=== PATIENT | female | born 1950 | race Caucasian/White ===

== ENCOUNTER → 2020-02-09 16:54 | Outpatient (CLI) | payer MEDICARE, SELFPAY ==
--- NOTE | ~2020-02-09 | XR_ITS ---
EXAMINATION: XR wrist LT min 3V DATE: 02/09/2020 17:15 INDICATION: Lateral left wrist pain post fall 2 weeks prior. TECHNIQUE: Posteroanterior, ulnar deviation, oblique, and lateral views of the left wrist were obtain ed. COMPARISON: none FINDINGS: Nondisplaced intra-articular likely impaction fracture of the distal left radius with up to 1 mm wide lucent fracture line at the ulnar side of the scaphoid fossa. No other acute fractures identified. S evere osteoarthritis at the first carpometacarpal joint with prior resection of the trapezium consist ent with first carpal metacarpal suspension arthroplasty. There is residual prominent hypertrophic ch kermit and large loose osteochondral body in the base of the first metacarpal. Mild osteoarthritis at t he triscaphe, first metacarpophalangeal and midcarpal joints. IMPRESSION: 1. Nondisplaced intra-articular fracture of the distal left radius with negligible impaction of the r adial styloid process and majority of the scaphoid fossa. Reviewed, dictated and finalized at location H. ING THERAPY DIRECTOR IMPRESSION: 1. Nondisplaced intra-articular fracture of the distal left radius with negligi ble impaction of the radial styloid process and majority of the scaphoid fossa.
== END ==
PROVIDERS: PCP Family Medicine; Visit Provider Family Medicine
DX: S52.502A Unspecified fracture of the lower end of left radius, initial encounter for closed fracture (principal)
CPT/HCPCS: 73110

== ENCOUNTER → 2020-03-01 15:39 | Outpatient (CLI) | payer MEDICARE, SELFPAY ==
--- NOTE | ~2020-03-01 | XR_ITS ---
XR wrist LT min 3V DATE: 03/01/2020 15:49 INDICATION: Distal radial fracture TECHNIQUE: 4 views COMPARISON: 02/09/2020 left wrist FINDINGS: There is some sclerosis along the nondisplaced intra-articular fracture of the radial stylo id process, without interval change in position or alignment since 02/09/2020. Severe osteoarthritic changes noted at the first carpometacarpal joint. Moderate osteopenia. IMPRESSION: Healing virtually nondisplaced intra-articular fracture of the radial styloid process Reviewed, dictated and finalized at location A. OTREATER OPERATOR IMPRESSION: Healing virtually nondisplaced intra-articular fracture of the radi al styloid process
== END ==
PROVIDERS: PCP Family Medicine; Visit Provider Family Medicine
DX: S62.109D Fracture of unspecified carpal bone, unspecified wrist, subsequent encounter for fracture with routine healing (principal); X58.XXXD Exposure to other specified factors, subsequent encounter
CPT/HCPCS: 73110

== ENCOUNTER 2022-10-24 08:41 | Outpatient (CLI) | payer MEDICARE, SELFPAY ==
--- NOTE | 2022-11-05 18:46 | WPDHOMESLEEP ---
Sleep Study - Home Unattended Date of Study: 10/24/22 Ordering Provider: Porter Anand MD Interpreting Provider: Cecile Phillips, DO Home Sleep Study Type: Watch ELIZABETH Height: 1.63 m Weight: 77.111 kg Body Mass Index: 29.2 Neck Circumference (inches): 13.24 [place]: 10 Reason for Sleep Study Waking up with dry mouth Sleep History The patient is a 71-year-old female with hypertension, depression, anxiety, GERD, adjustment disorder, herpes simplex, osteopenia, vaginal prolapse and tubular adenoma of colon that had a sleep study ordered by her primary care physician for evaluation of sleep disturbances. 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 She denies awakening from sleep short of breath. She frequently awakens at night with heartburn, belching or cough. She constantly snores and is frequently loud enough that others complain. He rarely has trouble sleeping when she has a cold. She denies waking up gasping for air throughout the night. She denies having breathing problems at night observed by herself or others. She occasionally sweats excessively at night. She occasionally has heart palpitations or irregular heartbeats during the night. She occasionally falls asleep during the day but rarely while driving. She denies sleep paralysis, cataplexy and hypnagogic / hypnopompic hallucinations. She rarely has trouble at school or work due to sleepiness. She denies feeling afraid of going to sleep. She rarely has nightmares. She occasionally remembers her dreams. She frequently has thoughts racing through her mind. She frequently feels sad, depressed and anxious. She occasionally has muscular tension. She denies noticing parts of her body jerk. She denies kicking during the night. She denies having crawling and aching feelings in her legs but frequently has leg pain during the night. She denies grinding her teeth during sleep but rarely awakens with morning jaw pain. She is rarely bothered by pain during the day and occasionally awakened by pain during the night. She rarely wakes up feeling stiff in the morning. She rarely wakes up with sore or achy muscles. She rarely wakes up with pain in the neck, spine or other joints. She goes to bed at 11:00 p.m. on weekdays and at midnight on the weekends. It takes her 15 minutes to fall asleep. She wakes up 2-3 times throughout the night to urinate and can not fall back asleep within 5-10 minutes most of the time. She wakes up between 7-9 a.m. on both weekdays and weekends. She typically gets 6-8 hours of sleep per night. She will stay in bed for 15 minutes after waking up in the morning. She currently lives with her . She does not consume any caffeinated beverages within 2 hours of bedtime. She denies engaging in physical exercise before bedtime. She will read and watch television before falling asleep. She denies taking naps in the afternoon or the evening. She consumes 1-2 cups of decaffeinated coffee per day. She will drink alcohol socially. She denies tobacco and recreational drug use. [facility] Past Medical History Medical History Adjustment disorder with anxious mood Encounter for dual-energy x-ray absoptiometry review Hepatitis C antibody test negative (04/17/21) Herpes simplex with unspecified complication Osteopenia Tubular adenoma of colon Vaginal prolapse Surgical History Surgical History H/O dilation and curettage H/O: hysterectomy Family History Family History Mother Family history of coronary artery disease Hypertension Cerebrovascular accident Father Malignant neoplasm of prostate Family history of malignant neoplasm of bone Diabetes mellitus Sibling Malignant neoplasm of prostate Family history of malignant neoplasm of kidney Daughter Breast cancer Other Breast canc
[2022-11-05 19:01] VITALS: BMI 29.2
== END 2022-10-25 13:31 | disposition home or self-care (01) ==
PROVIDERS: PCP Family Medicine; Visit Provider Family Medicine
DX: G47.33 Obstructive sleep apnea (adult) (pediatric) (principal)
CPT/HCPCS: 95800

== ENCOUNTER 2023-01-02 08:50 | Outpatient (CLI) | payer MEDICARE, SELFPAY ==
--- NOTE | 2023-01-25 23:42 | WPDSLEEPSTUD ---
Sleep Study Date of Study: 01/02/23 Ordering Provider: Porter Anand MD Interpreting Physician: Yeny Peterson MD Sleep Study Type: CPAP Titration Height: 1.63 m Weight: 77.111 kg Body Mass Index: 29.2 Neck Circumference (inches): 13.24 [place]: 10 Reason for Sleep Study * 10/24/2022- home sleep test using WatchPat showing moderate CARRI with an AHI 23.4 and desaturation to 83%; central AHI was 2.4; she returns for a CPAP titration. Sleep History Henny Teague is a 71-year-old female with hypertension, depression, anxiety, GERD who had a home sleep test Oct 24 showing moderate obstructive sleep apnea, returning for a CPAP titration. 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 She denies awakening from sleep short of breath. She frequently awakens at night with heartburn, belching or coughing. She constantly snores and is frequently loudly enough that others complain. He rarely has trouble sleeping when she has a cold. She denies waking up gasping for air throughout the night. She denies having breathing problems at night observed by others. She occasionally sweats excessively at night. She occasionally has heart palpitations or irregular heartbeats during the night. She occasionally falls asleep during the day but rarely while driving. She denies feeling paralyzed on waking or falling asleep, denies muscle weakness with strong emotion, and denies vivid dreamlike scenes on waking or falling asleep. She rarely has daytime difficulties due to excessive sleepiness as she is retired. She is not afraid of going to sleep. She rarely has nightmares. She occasionally remembers her dreams. She frequently has thoughts racing through her mind. She frequently feels sad, depressed and anxious. She occasionally has muscular tension. She denies noticing parts of her body jerk. She denies kicking during the night. She denies having crawling and aching feelings in her legs but frequently has leg pain during the night. She denies grinding her teeth during sleep but rarely awakens with morning jaw pain. She is rarely bothered by pain during the day and occasionally awakened by pain during the night. She rarely wakes up feeling stiff in the morning. She rarely wakes up with sore or achy muscles. She rarely wakes up with pain in the neck, spine or other joints. She goes to bed at 11:00 p.m. on weekdays and at midnight on the weekends. It takes her 15 minutes to fall asleep. She wakes up 2-3 times throughout the night to urinate. She wakes up between 7-9 a.m. on both weekdays and weekends. She typically gets 6-8 hours of sleep per night. She will stay in bed for 15 minutes after waking up in the morning. She currently lives with her . She does not take naps in the afternoon or the evening. She consumes 1-2 cups of decaffeinated coffee per day. She will drink alcohol socially. She denies tobacco and recreational drug use. [facility] Past Medical History Medical History (Updated 01/25/23 @ 23:50 by Yeny Peterson MD) Adjustment disorder with anxious mood Encounter for dual-energy x-ray absoptiometry review Essential (primary) hypertension GERD without esophagitis Hepatitis C antibody test negative (04/17/21) Herpes simplex with unspecified complication CARRI (obstructive sleep apnea) Osteopenia Tubular adenoma of colon Vaginal prolapse Surgical History Surgical History H/O dilation and curettage H/O: hysterectomy Family History Family History Mother Family history of coronary artery disease Hypertension Cerebrovascular accident Father Malignant neoplasm of prostate Family history of malignant neoplasm of bone Diabetes mellitus Sibling Malignant neoplasm of prostate Family history of malignant neoplasm of kidney Daughter Breast cancer Other Breast cancer Social History Social History (Reviewed 01/25/23 @ 23:4
[2023-01-25 23:43] VITALS: BMI 29.2
== END 2023-01-03 07:23 | disposition home or self-care (01) ==
LOC: ANHCSM 08:52
PROVIDERS: PCP Family Medicine; Visit Provider Family Medicine
DX: G47.33 Obstructive sleep apnea (adult) (pediatric) (principal)
CPT/HCPCS: 95811

== ENCOUNTER → 2023-04-22 13:38 | Outpatient (CLI) | payer MEDICARE, SELFPAY ==
--- NOTE | ~2023-04-22 | XR_ITS ---
EXAMINATION: XR chest 2V Exam Date/Time: 04/22/2023 14:56 [employer] HISTORY: J18.9 - Pneumonia, unspecified organism Comparison: None. RESULT: Lines, tubes, and devices: None. Lungs and pleura: No focal consolidation, pleural effusion, or pneumothorax. Senescent change. Granu lomatous calcification. Cardiomediastinal silhouette: Stable. Other: No acute osseous or upper abdominal finding. Mild anterior wedge deformity of 2 mid thoracic vertebral bodies, likely T6 and T7. IMPRESSION: No acute cardiopulmonary process. Mild anterior wedge deformity at T6 and T7, presumably chronic unless accompanied by acute pain/tende rness. Reviewed, dictated and finalized at location K. S [employer] IMPRESSION: No acute cardiopulmonary process. Mild anterior wedge deformity at T6 and T7, presumably chronic unless accompani ed by acute pain/tenderness.
== END ==
PROVIDERS: PCP Family Medicine; Visit Provider Physician Assistant
DX: J18.9 Pneumonia, unspecified organism (principal)
CPT/HCPCS: 71046

== ENCOUNTER 2023-09-01 08:33 | Outpatient (CLI) | payer MEDICARE, SELFPAY ==
[2023-09-01 14:57] LABS: Eosinophils Absolute Auto 0.2 K/mm3 (0-0.3); Eosinophils Percent Auto 5.5 % (0-4.4); Hematocrit 40.5 % (37.0-47.0); Hemoglobin 13.1 g/dL (12.0-15.0); Immature Granulocyte Absolute 0.01 K/mm3 (0.00-0.031); Immature Granulocyte Percent A 0.2 % (0-0.5); Lymphocytes Absolute Auto 2.02 K/mm3 (0.9-3.2); Lymphocytes Percent Auto 50.4 % (18.3-44.2); Mean Corpuscular HGB Conc 32.3 g/dl (32-36); Mean Corpuscular Hemoglobin 31.3 pg (26-34); Mean Corpuscular Volume 96.9 fl (80-100); Mean Platelet Volume 9.2 fl (7.4-10.4); Monocytes Absolute Auto 0.4 K/mm3 (0.1-0.6); Monocytes Percent Auto 10.2 % (2.6-8.5); Neutrophils Absolute Auto 1.3 K/mm3 (1.3-6.7); Neutrophils Percent Auto 32.7 % (45.5-73.1); Platelet Count Result 232 k/mm3 (150-375); Red Blood Count 4.18 M/mm3 (4.2-5.4); Red Cell Distribution Width 12.6 % (11.5-14.5)
[2023-09-01 17:14] LABS: Free T4 Free Thyroxine Reflex 0.83 ng/dL (0.78-2.19)
[2023-09-01 17:27] LABS: Alanine Aminotransferase 18 U/L (6-35); Albumin Level 4.1 g/dL (3.5-5.1); Alkaline Phosphatase 66 U/L (38-126); Anion Gap 4 mmol/L (4-12); Aspartate Amino Transferase 43 U/L (14-36); Bilirubin,Total 0.5 mg/dL (0.2-1.3); Blood Urea Nitrogen 16 mg/dL (7-17); Calcium 9.2 mg/dL (8.4-10.2); Carbon Dioxide 29 mmol/L (22-30); Chloride 104 mmol/L (98-107); Cholesterol 195 mg/dL (0-200); Estimated Glomerular Filt Rate > 60; Glucose 80 mg/dL (65-110); HDL Direct 61 mg/dL; Potassium 3.9 mmol/L (3.4-5.0); Sodium 137 mmol/L (137-145); Triglycerides 90 mg/dL (<150)
[2023-09-01 17:38] LABS: LDL Cholesterol Direct 101 mg/dL
[2023-09-01 18:19] LABS: Total Triiodothyronine (T3) 1.26 NG/ML (0.97-1.69)
== END 2023-09-01 08:34 | disposition home or self-care (01) ==
LOC: ANHGOSHLAB 08:36
PROVIDERS: PCP Family Medicine; Visit Provider Family Medicine
DX: Z00.00 Encounter for general adult medical examination without abnormal findings (principal); E78.2 Mixed hyperlipidemia; E88.810 Metabolic syndrome; Z79.899 Other long term (current) drug therapy
CPT/HCPCS: 36415; 80053; 80061; 84439; 84443; 84480; 85025

== ENCOUNTER 2023-12-22 09:07 | Outpatient (CLI) | payer MEDICARE, SELFPAY ==
[2023-12-22 13:49] LABS: Alanine Aminotransferase 17 U/L (6-35); Albumin Level 3.8 g/dL (3.5-5.1); Alkaline Phosphatase 63 U/L (38-126); Anion Gap 4 mmol/L (4-12); Aspartate Amino Transferase 35 U/L (14-36); Bilirubin,Total 0.3 mg/dL (0.2-1.3); Blood Urea Nitrogen 17 mg/dL (7-17); Calcium 9.4 mg/dL (8.4-10.2); Carbon Dioxide 32 mmol/L (22-30); Chloride 103 mmol/L (98-107); Cholesterol 197 mg/dL (0-200); Estimated Glomerular Filt Rate > 60; Glucose 83 mg/dL (65-110); HDL Direct 79 mg/dL; Potassium 4.2 mmol/L (3.4-5.0); Sodium 139 mmol/L (137-145); Triglycerides 57 mg/dL (<150)
[2023-12-22 14:00] LABS: LDL Cholesterol Direct 83 mg/dL
== END 2023-12-22 09:08 | disposition home or self-care (01) ==
PROVIDERS: PCP Family Medicine; Visit Provider Family Medicine
DX: E78.5 Hyperlipidemia, unspecified (principal); R74.01 Elevation of levels of liver transaminase levels; R74.8 Abnormal levels of other serum enzymes; E88.810 Metabolic syndrome
CPT/HCPCS: 36415; 80053; 80061

== ENCOUNTER 2024-06-21 09:26 | Outpatient (CLI) | payer MEDICARE, SELFPAY ==
--- OUTSIDE RECORDS SUMMARY | 2024-06-21 10:15 | XMS_ITS | Clinical Summary ---
Author Organization 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 Gender Identity Not on file Sexual Orientation Not on file Plan of Treatment Health Maintenance Due Date Last Done Comments DEXA Bone Density 1950 Hepatitis C Virus (HCV) Screening 1950 TdaP Immunization 1950 Colonoscopy 12/27/1995 Colorectal Cancer Screening 12/27/1995 Cologuard 2000 Immunochemical Fecal Occult Blood 2000 Mammogram 2000 Pneumococcal Immunization (5 0+ years) (2 of 2 - PCV) 02/24/2019 02/24/2018 Influenza Immunization (#1) 11/23/202312/23, 12/22/2019, 12/03/2017 SARS-COV-2 Immunization ( season) 2023 12/17/2020, 05/19/2020, 04/21/2020 Respiratory Syncytial Virus (RSV) Immunization (Adult) (1 - 1-dose 75+ series) 2025 Pneumococcal Immunization Combined Discontinued 02/24/2018 Zoster Immunization Completed 04/14/2021, 01/23/2021 Hepatitis B Immunization Aged Out No longer eligible based on patient's age to complete this topic Meningococcal Immunization (ACWY) Aged Out No longer eligible based on patient's age to complete this topic Rotavirus Immunization Aged Out No lo nger eligible based on patient's age to complete this topic Insurance [employer] on file
--- OUTSIDE RECORDS SUMMARY | 2024-06-21 10:15 | XMS_ITS | Encounter Summary ---
Author Organization [facility] Address [address] [place] [address] Care Team Providers Care Organizational Research Consultant Name Role Phone Porter Anand MD Primary Care Provider [phone] Encounter Details Date Type Department Care Team (Latest Contact Info) Description 11/02/2008 Outpatient Historical [facility], [address] Sy Diaz MD [address] [address] Routine Gynecological Examination Social History Tobacco Use Types Packs/Day Years Used Date Smoking Tobacco: Never Alcohol Use Standard Drinks/Week Comments Yes 1.7 (1 standard drink = 0.6 oz p ure alcohol) Comments No Sex and Gender Information Value Date Recorded Sex Assigned at Not on file Legal Sex Female 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 Gender Identity Not on file Sexual Orientation Not on file documented as of this encounter Plan of Treatment Upcoming Encounters Date Type Department Care Team (Late st Contact Info) Description 05/11/2025 10:30 AM OLEO HASHER AND RENDERER Office Visit [facility] [id number] [address] Sy Diaz MD [address] [address] 06/08/2025 10:40 AM CDT Appointment [facility] [address] [place] [address] Sy Diaz MD [address] [email or web address] [address] [place] [address] 06/08/2025 11:00 AM CDT Appointment [facility] [place] [address] [place] [id number] Sy Diaz MD [address] [facility] [[email or web address]] [address] [place] [address] documented as of this encounter Visit Diagnoses Diagnosis Routine gynecological examination documented in this encounter Care Teams Organizational Research Consultant Relationship Specialty Start Date End Date Porter Anand MD PCP - General Family Practice 12/16/19 documented as of this encounter
--- OUTSIDE RECORDS SUMMARY | 2024-06-21 10:15 | XMS_ITS | Continuity of Care Document ---
Author Organization [facility] Address [address] [place] [address] Phone Care Team Providers Care Ec Teacher Name Role Phone Mirna Black Unavailable Unavailable Procedures Procedure Date Eye Exam Established Pt Office/outpatient Visit, New Advance Directives Directive Yes / No Effective Date File Name No Information Encounters Encounter Description Practice Location Reason(s) For Visit Diagnoses Date Provider Providers Copied on Encounter [facility], [address] [place] [address] [address], [place], [place], [id number], tel:[phone] [facility] No Information 0-200 9 Sofia Bradley. [address] , [address], [place], [place], [facility] [place], [place]. tel:[phone] Office/outpat ient Visit, [facility], [address] [place] [address] [address], [place], [place], [id number], tel:[phone] [facility] No Information 5-200 9 Anderson Justice. [address], [place], [address], [place]. tel:[phone] Family History Family Member Type Diagnosis Age At Onset No Information Payers Payer name Insurance type Covered libertarian ID Authoriza tion(s) No Information Social History Type Description Quantity Date Captured Comments Sex Female Smoking Status No Information Chief Complaint And Reason For Visit No Information Reason For Referral Reason For Referral No Information History Of Present Illness Encounter Date Complaint History Of Prese nt Illness No Information Functional Status Date Functional Assessmen t No Information Instructions Date Instruction Additional Infor mation No Information Assessments Type Assessment Date No Information Patient Care Teams Name Effective Dates (start - stop) Status Members No Information
--- OUTSIDE RECORDS SUMMARY | 2024-06-21 10:15 | XMS_ITS | Referral Summary ---
Author Organization [facility] Address [address] [place] [address] Care Team Providers Care Pc Installation Engineer Name Role Phone Porter Anand MD Primary Care Provider [phone] Encounters Date Type Department Care Team Description 04/28/2024 10:00 AM CAR SANDER Office Visit [facility] Ophthalmology [address]th [address], [address] [place] [address] Santiago Ayala, OD Age-related nuclear cataract of both eyes (Primary Dx); Posterior vitreous detachment of left eye; Corneal scar, left eye from Last 3 Months Allergies Active Allergy Reactions Criticality Noted Date Comments Neomycin-Bacitracin- Polymyxin Unknown Nsaids (Non-Steroidal Anti-Inflammatory Drug) Other (See comments) Low 04/28/2020 Does not take due to GI issues Medications simvastatin (ZOCOR) 10 mg tablet Take 1 tablet (10 mg total) by mouth nightly 9 Active lisinopril (PRINIVIL,ZESTR IL) 5 mg tablet Take 2 tablets (10 mg total) by mouth nightly at bedtime 9 Active clobetasoL (TEMOVATE) 0.05 % creamIndication s:Hand dermatitis Apply thin layer to bumps on hands BID as needed for rash. Stop if no improvement in 3-4 weeks. 30 g 1 Active Additional Information Patient not taking.Reported on 03/04/2022 acyclovir (ZOVIRAX) 5 % ointment Apply 1 application topically 6 (six) times a day Space applications every 3 hours. Active escitalopram (LEXAPRO) 10 mg tablet Take 1 tablet (10 mg total) by mouth nightly Active oxybutynin XL (DITROPAN-XL) 10 mg 24 hr tablet Take 1 tablet (10 mg total) by mouth nightly Active valACYclovir (VALTREX) 1 gram tablet Take 1 tablet (1,000 mg total) by mouth nightly Active calcium carb/vitamin D3/vit K1 (CALCIUM SOFT CHEW ORAL) Take 2 tablet/chew tab by mouth nightly Active cholecalciferol (VITAMIN D-3) 25 mcg (1,000 unit) tablet Take 1 tablet (1,000 Units total) by mouth nightly Active mv,with Qa-gpps-QG-lut- 179herb 13.5-200-250 mg-mcg-mcg tablet Take 1 tablet by mouth nightly Active polycarbophil (FIBERCON) 625 mg tablet Take 4 tablets (2,500 mg total) by mouth nightly Active HYDROcodone-griffin taminophen (NORCO) 5-325 mg per tabletIndicatio ns:Pain Take 1-2 tablets by mouth every 4 (four) hours as needed for pain for up to 30 doses 30 tablet 1 Active Additional Information Patient not taking.Reported on 03/04/2022 hydroCHLOROthia zide (HYDRODIURIL) 12.5 mg tablet Take 1 tablet (12.5 mg total) by mouth daily 2 Active omeprazole (PriLOSEC) 20 mg capsule Take 1 capsule (20 mg total) by mouth daily 2 Active estradioL (ESTRACE) 0.01 % (0.1 mg/gram) vaginal cream Insert into the vagina daily 1 Active Active Problems Problem Noted Date Diagnosed Date Posterior vitreous detachment of left eye 2024 Assessment & Plan (04/28/2024 10:39 AM CAR SANDER): No holes/breaks/tears 360 on dilated exam. Educated on s/s of a retinal detachment/tear, RTC STAT with any new onset flashes, floaters or curtain veiling. RTC 1 year for dilated exam Refractive error 04/24/2023 Visual disturbance 09/06/2021 Assessment & Plan (09/06/2021 3:59 PM CDT): Patient here today for complains of dimness in vision both eyes (OU) X 2-3 months -ocular exam overall stable and normal; reassuring but does not explain patient's symptoms -pt ed of normal findings and optimal vision; recommend start Lutein supplement to support macular pigments -RTC 6 months with Griffiths visual field (HVF) and OCT mac/GCC or sooner with more change sin vision Age-related nuclear cataract of both eyes 2021 Assessment & Plan (04/28/2024 10:39 AM CAR SANDER): Mild, not vis sig or affecting ADLs Surgery not indicated at this time Monitor Assessment & Plan (09/06/2021 4:00 PM CDT): Normal age related cataract; no significant effect on vision and would not expect this to cause patient's symptoms -cataract extraction (CE) not indicated; follow Vaginal vault prolapse after hysterectomy 2019 Overview (03/13/2020): Added automatically from request for surgery [id number] Urinary, incontinence, stress female 03/13/2020 Overview (03/13/2020): Added automatically from request for surgery [id number] Rectocele 01/12/2020 Lesion of canthus 04/29/2019 Assessment & Plan (04/29/2019 3:03 PM CAR SANDER): Nasal canthus left eye (OS) X 2 days; pt has history of herpes simplex outbreaks around mouth and nose. This most likely represents a herpes simplex lesion -no evidence of corneal involvement; anterior chamber (AC) quiet Plan: -RX Valtrex 1gram TID (will use shingles dose has pt has h/o shingles) X 1 week -start art tears TID left eye (OS) -stop contact lens (CL) wear X 10 days -pt to see PCP if does not resolve Corneal scar, left eye 04/29/2019 Assessment & Plan (04/28/2024 10:39 AM CAR SANDER): Longstanding, status post (s/p) corneal ulcer. Not affecting BCVA. Monitor. Assessment & Plan (09/06/2021 3:59 PM CDT): Stable; no effect on vision Status post laparoscopic assisted vaginal hyster ectomy 10/11/2016 Overview (03/04/2022): Complex adnexal mass; cystocele Fibroma/fibroid uterus/pcos Rash 11/20/2015 Dense breasts 04/12/2015 FH: kidney cancer 04/05/2015 Cystocele, midline 04/05/2015 Overview (03/04/2022): urology [place] of toe 10/28/2014 Inflamed seborrheic keratosis 10/28/2014 Angioma 10/28/2014 Multiple benign melanocytic nevi 10/28/2014 Pain of thigh 07/27/2014 Dermatofibroma 01/08/2013 Benign neoplastic disease 01/08/2013 Epidermoid cyst 01/08/2013 Keratosis, senilis 01/08/2013 Ulcerative colitis, unspecified 10/12/2009 Unspecified menopausal and postmenopausal disord er 11/01/2008 Fibrocystic breast 11/01/2008 Overview (03/04/2022): Abnormal mammogram and normal bx 2008 Immunizations Immunization Administration Dates Next Due Hep A, Adult 04/08/2019,12/03/2017 Influenza, Quad, Adjuvantate d, Intramuscular 01/16/2021 Influenza, Quadrivalent, Hig h Dose, Preservative Free, Intrr 12/22/2019 Influenza, Quadrivalent, Spl it, Preservative Free, Intramuscular 12/03/2017,11/21/2016,03/12/2016 [employer] SARS-CoV-2 Monovalent Vaccination (12+ Yrs) SIMENTAL-READY TO USE 06/20/2021 [employer] Sars-Cov-2 Bivalent V accination (12+ YRS) 12/12/2021 Pneumococcal Conjugate PCV 13 03/12/2016 Pneumococcal Polysaccharide PPV23 02/24/2018 ZOSTER Recombinant 04/14/2021,01/23/2021 Social History Tobacco Use Types Packs/Day Years Used Date Smoking Tobacco: Never Smokeless Tobacco: Never Alcohol Use Standard Drinks/Week Comments Yes 0 (1 standard drink = 0.6 oz pur e alcohol) occassionally Comments No Sex and Gender Information Value Date Recorded Sex Assigned at Not on file Legal Sex Female 2:19 AM CAR SANDER Gender Identity Female 04/06/2023 3:49 PM CAR SANDER Sexual Orientation Straight 04/06/2023 3: 49 PM CAR SANDER Last Filed Vital Signs Vital Sign Reading Time Taken Comments Blood Pressure 140/81 08/23/2023 9:50 AM CDT Pulse 62 08/23/2023 9:50 AM CDT Temperature 36.6 C (97.8 F) 08/23/2023 9:50 AM CDT Respiratory Rate 18 08/23/2023 9:50 AM CDT Oxygen Saturation 97% 08/23/2023 9:50 AM CDT Inhaled Oxygen Concentration - - Weight 77.5 kg (170 lb 14.4 oz) 08/23/2023 9:50 AM CDT Height 160 cm (5' 2.99 ) 08/23/2023 9:50 AM CDT Body Mass Index 30.28 08/23/2023 9:50 AM CDT Plan of Treatment Not on file Medical Devices Implanted Type Area Sheep Or Calf Grader Device Identifier Shelf Expiration Date Model / Serial / Lot LocalBonus [id number] Upsylon 35.4cm Elongation Profile Lightweight Large Pore Low - [id number] Implanted:Qty: 1 on 05/02/2020 by Andreas oCnnor MD at [facility] Mesh N/A: Pelvis [employer] No 02/20/2023 [id number] / / [id number] [employer] No [id number] Obtryx Ii Precisionblue Advantage .15mm 22cm Sling Halo Needle - [id number] Implanted:Qty: 1 on 05/02/2020 by Andreas Connor MD at [facility] N/A: Pelvis [employer] No 10/06/2022 [id number] / / [id number] Procedures Procedure Name Priority Date/Time Associated Diagnosis Comments SCREENING MAMMOGRAM BILATERAL W SHAHAB Schedule Routine, Read Routine (OP Routine) 02/27/2022 1:55 PM CAR SANDER Screening mammogram, encounter for DEXA AXIAL SKELETON BONE DENSITY 1 OR MORE SITES Routine 02/08/2013 11:30 AM CAR SANDER from Last 3 Months or Most Recently Relevant to Health Maintenance Results * Screening Mammogram Bilateral W Shahab (02/27/2022 1:55 PM CAR SANDER) Anatomical Region Laterality Modality Breast Bilateral Mammography Narrative 02/27/2022 2:27 PM CAR SANDER Screening Mammogram Bilateral W Shahab: 02/27/22 Clinical: Screening mammogram, encounter for. Prior Study Comparisons: Comparison was made to the prior available relevant studies at the time of interpretation. Findings: Bilateral No significant masses, malignant type calcifications, skin thickening, nipple retraction, or significant lymphadenopathy is noted in either breast. The CAD review showed no significant findings. The breasts are heterogeneously dense, which may obscure small masses. The patient will be notified of results by letter. Impression: BI-RADS ATLAS category (overall): 2 - Benign There is no mammographic evidence of malignancy. Routine Screening Mammogram in 1 Yr is recommended. Overall Assessment: 2 - Benign us Self Screening Mammogram IMG MAMMO PROCEDURES Fi nal Result * DEXA Axial Skeleton Bone Density Multi Site (02/08/2013 11:30 AM CAR SANDER) Anatomical Region Laterality Modality Body N/A Radiographic Aline ging 02/08/2013 11:3 0 AM CAR SANDER Narrative 02/08/2013 12:26 PM CAR SANDER Bone mineral density [facility] Clinical History: Postmenopausal female currently taking calcium and vitamin D. DXA BMD was done at [facility] Breast [facility] on a Biogenic Reagents CI. Precision testing at this site has resulted in a least significant change of: Lumbar spine 0.035 g/sq cm Hip 0.025 g/sq cm BMD L1-L4 is 1.019 g/sq cm corresponding to a T score of -0.3. BMD left femoral neck is 0.726 g/sq cm corresponding to a T score of -1.1. BMD total left hip is 0.832 g/sq cm corresponding to a T score of -0.9. COMPARISON: When comparison is made with prior bone densitometry dated 09/18/2009, there has been no significant interval change in total bone mineral density of the lumbar spine and there has been 3.4 percent interval decrease in total bone mineral density of the left hip. IMPRESSION: Low bone mass (osteopenia) which depending on the clinical circumstances may result in a moderate increased risk of fragility fracture. If followup is to be done, for technical reasons, it should be performed on this same machine. Radiologist: GODFREY RODRIGUEZ M.D. Attending: LUCY DE DIOS M.D. Requesting: LUCY DE DIOS M.D. Requesting Completed Time: 02/08/2013 11:30 AM Dictated Time: 02/08/2013 12:21 AM Transcribed Time: 02/08/2013 12:26 AM Signed by: GODFREY RODRIGUEZ M.D. on 02/08/2013 12:26 AM Procedure Note Provider, MD Kevin - 07/17/2016 Bone mineral density [facility] Clinical History: Postmenopausal female currently taking calcium and vitamin D. DXA BMD was done at [facility] on a HoloAttention Point Discovery CI. Precision testing at this site has resulted in a least significant change of: Lumbar spine 0.035 g/sq cm Hip 0.025 g/sq cm BMD L1-L4 is 1.019 g/sq cm corresponding to a T score of -0.3. BMD left femoral neck is 0.726 g/sq cm corresponding to a T score of -1.1. BMD total left hip is 0.832 g/sq cm corresponding to a T score of -0.9. COMPARISON: When comparison is made with prior bone densitometry dated 09/18/2009, there has been no significant interval change in total bone mineral density of the lumbar spine and there has been 3.4 percent interval decrease in total bone mineral density of the left hip. IMPRESSION: Low bone mass (osteopenia) which depending on the clinical circumstances may result in a moderate increased risk of fragility fracture. If followup is to be done, for technical reasons, it should be performed on this same machine. Radiologist: GODFREY RODRIGUEZ M.D. Attending: LUCY DE DIOS M.D. Requesting: LUCY DE DIOS M.D. Requesting Completed Time: 02/08/2013 11:30 AM Dictated Time: 02/08/2013 12:21 AM Transcribed Time: 02/08/2013 12:26 AM Signed by: GODFREY RODRIGUEZ M.D. on 02/08/2013 12:26 AM [facility] Provider MD ROBLES DXA PROCEDURES Final Result from Last 3 Months or Most Recently Relevant to Health Maintenance Insurance MEDICARE MEDICARE ADVANTAGE [facility] MEDIC[facility] Address: [address] [address] [place] [address] [employer] MEDICARE Care Teams Pc Installation Engineer Relationship Specialty Start Date End Date Porter Anand MD PCP - General 12/06/19
--- OUTSIDE RECORDS SUMMARY | 2024-06-21 10:15 | XMS_ITS | Clinical Summary ---
Author Organization [facility] Address [address] [place] [address] Care Team Providers Care Weighmaster Lead Name Role Phone Porter Anand MD Primary Care Provider [phone] Allergies Active Allergy Reactions Criticality Noted Date [...] Units total) by mouth nightly Active mv,with Qt-svzm-PU-lut- 179herb 13.5-200-250 mg-mcg-mcg tablet Take 1 tablet [...] 2024 Assessment & Plan (04/28/2024 10:39 AM CHEMISTRY QUALITY CONTROL ANALYST): No holes/breaks/tears 360 on dilated exam. Educated [...] 2021 Assessment & Plan (04/28/2024 10:39 AM CHEMISTRY QUALITY CONTROL ANALYST): Mild, not vis sig or affecting ADLs Surgery not indicated at this time Monitor Assessment & Plan (09/06/2021 4:00 PM CDT): Normal age related cataract; no significant effect on vision and would not expect this to cause patient's symptoms -cataract extraction (CE) not indicated; follow Vaginal vault prolapse after hysterectomy 2019 Overview (03/13/2020): Added automatically from request for surgery [id number] Urinary, incontinence, stress female 03/13/2020 Overview (03/13/2020): Added automatically from request for surgery [id number] Rectocele 01/12/2020 Lesion of canthus 04/29/2019 Assessment & Plan (04/29/2019 3:03 PM CHEMISTRY QUALITY CONTROL ANALYST): Nasal canthus left eye (OS) X 2 [...] 04/29/2019 Assessment & Plan (04/28/2024 10:39 AM CHEMISTRY QUALITY CONTROL ANALYST): Longstanding, status post (s/p) corneal ulcer. Not affecting BCVA. Monitor. Assessment & Plan (09/06/2021 3:59 PM CDT): Stable; no effect on vision Status post laparoscopic assisted vaginal hyster ectomy 10/11/2016 Overview (03/04/2022): Complex adnexal mass; cystocele Fibroma/fibroid uterus/pcos Rash 11/20/2015 Dense breasts 04/12/2015 FH: kidney cancer 04/05/2015 Cystocele, midline 04/05/2015 Overview (03/04/2022): urology [place] of toe 10/28/2014 Inflamed seborrheic keratosis 10/28/2014 Angioma 10/28/2014 Multiple benign melanocytic nevi 10/28/2014 Pain of thigh 07/27/2014 Dermatofibroma 01/08/2013 Benign neoplastic disease 01/08/2013 Epidermoid cyst 01/08/2013 Keratosis, senilis 01/08/2013 Ulcerative colitis, unspecified 10/12/2009 Unspecified menopausal and postmenopausal disord er 11/01/2008 Fibrocystic breast 11/01/2008 Overview (03/04/2022): Abnormal mammogram and normal bx 2007 Encounters Date Type Department Care Team Description 04/28/2024 10:00 AM CHEMISTRY QUALITY CONTROL ANALYST Office Visit [facility] Ophthalmology [address], [address] [place] [address] Santiago Ayala, OD Age-related nuclear cataract of both eyes (Primary Dx); Posterior vitreous detachment of left eye; Corneal scar, left eye from Last 3 Months Immunizations Immunization Administration Dates Next Due Hep A, Adult 04/08/2019,12/03/2017 Influenza, Quad, Adjuvantate d, Intramuscular 01/16/2021 Influenza, Quadrivalent, Hig h Dose, Preservative Free, Intrr 12/22/2019 Influenza, Quadrivalent, Spl it, Preservative Free, Intramuscular 12/03/2017,11/21/2016,03/12/2016 [employer] SARS-CoV-2 Monovalent Vaccination (12+ Yrs) SIMENTAL-READY TO USE 06/20/2021 [employer] Sars-Cov-2 Bivalent V accination (12+ YRS) 12/12/2021 Pneumococcal Conjugate PCV 13 03/12/2016 Pneumococcal Polysaccharide PPV23 02/24/2018 ZOSTER Recombinant 04/14/2021,01/23/2021 Surgical History Surgery Date Site/Laterality Comments HYSTERECTOMY age 65 DILATION AND CURETTAGE OF UTERUS 03/24/1984 - 03/23/1985 Medical History Medical History Date Comments Vaginal vault prolapse after hysterectomy Female stress incontinence Anxiety and depression HTN (hypertension) HLD (hyperlipidemia) Asthma as child GERD (gastroesophageal reflux disease) OAB (overactive bladder) Family History Medical History Relation Name Comments Cancer Father Family history of malignant neoplasm - (Added by TW Conv) Diabetes Father Family history of diabetes mellitus - (Added by TW Conv) Hypertension Mother Family history of hypertension - (Added by TW Conv) Stroke Mother Family history of cerebrovascular accident - (Added by TW Conv) Cancer Other 1 Family history of malignant neoplasm - (Added by TW Conv) Diabetes Other 2 Family history of diabetes mellitus - (Added by TW Conv) Hypertension Other 3 Family history of hypertension - (Added by TW Conv) Relation Name Status Comments Father Mother Other 1 Other 2 Other 3 Social History Tobacco Use Types Packs/Day Years Used Date Smoking Tobacco: Never Smokeless Tobacco: Never Alcohol Use Standard Drinks/Week Comments Yes 0 (1 standard drink = 0.6 oz pur e alcohol) occassionally Comments No Sex and Gender Information Value Date Recorded Sex Assigned at Not on file Legal Sex Female 2:19 AM CHEMISTRY QUALITY CONTROL ANALYST Gender Identity Female 04/06/2023 3:49 PM CHEMISTRY QUALITY CONTROL ANALYST Sexual Orientation Straight 04/06/2023 3: 49 PM CHEMISTRY QUALITY CONTROL ANALYST Obstetrics History Last Filed Vital Signs Vital Sign Reading [...] 08/23/2023 9:50 AM CDT Plan of Treatment Health Maintenance Due Date Last Done Comments Colon Cancer Screening-Colonoscopy 1950 Depression Screening 1950 Hepatitis C Screening 1950 DTaP/Tdap/Td Vaccine (1 - Tdap) 1961 Hepatitis B Screening 1968 Well Visit 65+ 12/27/2015 Fall Risk Assessment 05/02/2021 05/02/2020 Covid-19 Vaccine (6 - 2023-2 5 season) 2023 12/12/2021, 06/20/2021, 12/17/2020, Additional history exists Influenza Vaccine (#1) 2023 , 12/22/2019, 12/03/2017, Additional history exists Breast Cancer Screening-Mammogram 04/24/2024 04/24/2023, 04/24/2023, 02/27/2022, Additional history exists Osteoporosis Screening-Bone Density Scan 04/24/2025 04/24/2023, 04/24/2023, 01/11/2021, Additional history exists Pneumococcal vaccine 65+ Completed 02/24/2018, 02/22 Zoster Vaccine Completed 04/14/2021, 01/23/2021 Medical Devices Implanted Type Area Actuarial Mathematician Device Identifier Shelf Expiration Date Model / Serial / Lot Wesabe [id number] Upsylon 35.4cm Elongation Profile Lightweight Large Pore Low - [id number] Implanted:Qty: 1 on 05/02/2020 by Andreas Connor MD at [facility] Mesh N/A: Pelvis [employer] No 02/20/2023 [id number] / / [id number] [employer] No [id number] Obtryx Ii Precisionblue Advantage .15mm 22cm Sling Halo Needle - [id number] Implanted:Qty: 1 on 05/02/2020 by Andreas Connor MD at [facility] N/A: Pelvis [employer] No 10/06/2022 [id number] / / [id number] Procedures Procedure Name Priority Date/Time Associated Diagnosis Comments SCREENING MAMMOGRAM BILATERAL W SHAHAB Schedule Routine, Read Routine (OP Routine) 02/27/2022 1:55 PM CHEMISTRY QUALITY CONTROL ANALYST Screening mammogram, encounter for DEXA AXIAL SKELETON BONE DENSITY 1 OR MORE SITES Routine 02/08/2013 11:30 AM CHEMISTRY QUALITY CONTROL ANALYST from Last 3 Months or Most Recently Relevant to Health Maintenance Results * Screening Mammogram Bilateral W Shahab (02/27/2022 1:55 PM CHEMISTRY QUALITY CONTROL ANALYST) Anatomical Region Laterality Modality Breast Bilateral Mammography Narrative 02/27/2022 2:27 PM CHEMISTRY QUALITY CONTROL ANALYST Screening Mammogram Bilateral W Shahab: 02/27/22 Clinical: [...] Bone Density Multi Site (02/08/2013 11:30 AM CHEMISTRY QUALITY CONTROL ANALYST) Anatomical Region Laterality Modality Body N/A Radiographic Aline ging 02/08/2013 11:3 0 AM CHEMISTRY QUALITY CONTROL ANALYST Narrative 02/08/2013 12:26 PM CHEMISTRY QUALITY CONTROL ANALYST Bone mineral density [facility] Clinical History: Postmenopausal female currently taking calcium and vitamin D. DXA BMD was done at [facility] on a IP Ghoster CI. Precision testing at this site has [...] performed on this same machine. Radiologist: GODFREY RODIRGUEZ M.D. Attending: LUCY DE DIOS M.D. Requesting: LUCY DE DIOS M.D. Requesting Completed Time: 02/08/2013 11:30 AM Dictated Time: 02/08/2013 12:21 AM Transcribed Time: 02/08/2013 12:26 AM Signed by: GODFREY RODRIGUEZ M.D. on 02/08/2013 12:26 AM Procedure Note Provider, MD Kevin - 07/17/2016 Bone mineral density [facility] Clinical History: Postmenopausal female currently taking calcium and vitamin D. DXA BMD was done at [facility] on a Holo[employer] Discovery CI. Precision testing at this site [...] GODFREY RODRIGUEZ M.D. on 02/08/2013 12:26 AM Historical Provider MD ROBLES DXA PROCEDURES Final Result from Last 3 Months or Most Recently Relevant to Health Maintenance Insurance [facility] MEDICARE [facility] MEDICARE Address: [facility] [address] [place] [address] UHC MEDICARE ADVANTAGE [employer] MEDICARE [facility] MEDICARE Address: [facility] [id number] [place] [phone] Care Teams Weighmaster Lead Relationship Specialty Start Date End Date Porter Anand MD PCP - General 12/06/19
--- OUTSIDE RECORDS SUMMARY | 2024-06-21 10:15 | XMS_ITS | Clinical Summary ---
Author Organization [facility] Address [address] [place] [address] Phone Care Team Providers Care Detective Private Eye Name Role Phone Porter Anand MD Primary Care Provider [phone] Allergies Active Allergy Reactions Criticality Noted Date Comments Neomycin Other (See Comments) 11/01/2008 Wound would not heal Medications simvastatin (ZOCOR) 10 mg Oral Tab Take 10 mg by mouth Daily LATE. Active PSYLLIUM HUSK (METAMUCIL ORAL) Take by mouth. Activ e cholecalciferol , Vitamin D3, (VITAMIN D3) 1,000 unit Capsule Take by mouth daily. Active acyclovir (ZOVIRAX) 5 % Ointment 6 Active valACYclovir (VALTREX) 1 gram tablet 6 Active calcium as carbonate (CALCI-CHEW) 1,250 mg (500 mg elemental) Tablet, Chewable Take 2 Tablets by mouth daily. Active escitalopram oxalate (LEXAPRO) 10 mg tablet TK 1 T PO D 0 Active lisinopriL (PRINIVIL) 2.5 mg tablet Take 10 mg by mouth daily. 0 Active mv,with Fo-plxg-WS-lut- 179herb 13.5-200-250 mg-mcg-mcg Tablet Take 1 Tablet by mouth daily at bedtime. Active oxybutynin chloride (DITROPAN XL) 10 mg Extended Release 24 hour tablet Take 10 mg by mouth daily at bedtime. Active nystatin-triamc inolone (MYCOLOG-II) 100,000-0.1 unit/g-% Cream Apply to affected area 2 times daily. 30 Gram 1 1 Active Additional Information Patient not taking.Reported on 04/12/2024 hydroCHLOROthia zide (HYDRODIURIL) 12.5 mg tablet Take 12.5 mg by mouth daily. 2 Active omeprazole (PriLOSEC) 20 mg Capsule, Delayed Release(E.C.) Take 20 mg by mouth daily. 2 Active estradioL (Estrace) 0.01% (0.1 mg/g) vaginal cream Insert vaginally daily. 42.5 Gram 2 3 Active Additional Information Patient not taking.Reported on 04/12/2024 Flowflex COVID-19 Ag Home Test Kit USE DIRECTED 3 Active albuterol sulfate HFA 90 mcg/actuation aerosol inhaler INHALE 2 PUFFS EVERY 4 HOURS NEEDED FOR WHEEZE OR FOR SHORTNESS OF BREATH 4 Active amoxicillin-cla vulanate (AUGMENTIN) 875-125 mg tablet Take 1 Tablet by mouth 2 times daily. 3 Active benzonatate (TESSALON) 200 mg capsule 200 MG ORALLY THREE TIMES A DAY NEEDED FOR COUGH 3 Active budesonide-form oteroL (SYMBICORT) 160-4.5 mcg/actuation HFA Aerosol Inhaler INHALE 2 PUFFS EVERY 12 HOURS 3 Active polycarbophil calcium (FIBERCON) 625 mg tablet Take 2,500 mg by mouth daily at bedtime. Active mirabegron (MYRBETRIQ) 25 mg Extended Release 24 hour tablet Take 1 Tablet by mouth daily. 4 Active Active Problems Problem Noted Date Diagnosed Date Abnormal mammogram of left breast 05/27/2024 FH: BRCA gene positive 03/06/2022 Age-related nuclear cataract of both eyes 2021 Overview (03/06/2022): Last Assessment & Plan: Normal age related cataract; no significant effect on vision and would not expect this to cause patient's symptoms -cataract extraction (CE) not indicated; follow Visual disturbance 09/06/2021 Overview (03/06/2022): Last Assessment & Plan: Patient here today for complains of dimness in vision both eyes (OU) X 2-3 months -ocular exam overall stable and normal; reassuring but does not explain patient's symptoms -pt ed of normal findings and optimal vision; recommend start Lutein supplement to support macular pigments -RTC 6 months with Griffiths visual field (HVF) and OCT mac/GCC or sooner with more change sin vision Vaginal vault prolapse after hysterectomy 2019 Overview (12/25/2020): Added automatically from request for surgery [id number] Rectocele 01/12/2020 Corneal scar, left eye 04/29/2019 Lesion of canthus 04/29/2019 Overview (01/12/2020): Last Assessment & Plan: Nasal canthus left eye (OS) X 2 [...] to see PCP if does not resolve 2017: DaTLH/BSO 10/11/2016 Overview (10/24/2016): Complex adnexal mass; cystocele Fibroma/fibroid uterus/pcos Rash 11/20/2015 Dense breasts 04/12/2015 FH: kidney cancer: Brother 04/05/2015 FIORELLA (stress urinary incontinence, female) 2015 Cystocele, midline 04/05/2015 Overview (06/02/2015): urology [place] of toe 10/28/2014 Hemangioma 10/28/2014 Inflamed seborrheic keratosis 10/28/2014 Multiple benign melanocytic nevi 10/28/2014 Pain of thigh 07/27/2014 Benign neoplastic disease 01/08/2013 Dermatofibroma 01/08/2013 Epidermoid cyst 01/08/2013 LMP 2006 11/01/2008 Fibrocystic Breast / Dense Breasts 11/01/2008 Overview (11/01/2008): Abnormal mammogram and normal bx 2007 Resolved Problems Problem Noted Date Diagnosed Date Resolved Date Endometrial polyp 06/02/2015 10/24/2016 Ovarian cyst, right 05/19/2015 10/25/19 left solid ovarian growth 05/19/2015 Postmenopausal bleeding 05/19/201505/2016 Intramural leiomyoma of uterus 05/19/2015 10/24/2016 FH: Ulcerative Colitis- mother 10/12/2009 04/13/2023 Encounters Date Type Department Care Team Description 06/16/2024 7:51 AM CDT - 06/16/2024 11:59 PM CDT Hospital Encounter [facility] [address] [facility] [place] [place] [address] Sy Diaz MD Discharge Disposition: Home or Self Care 06/16/2024 7:40 AM CDT - 06/16/2024 11:59 PM CDT Hospital Encounter [facility] [address] [place] [address] Sy Diaz MD Discharge Disposition: Home or Self Care 06/16/2024 Results Follow-Up [facility] [id number] [address] Sy Diaz MD MAMMO 3D TEZ DIAGNOSTIC UNI LT W OR WO CAD 06/09/2024 External Device Data STL ABSTRACTION Provider, Abstract 05/29/2024 External Device Data STL ABSTRACTION Provider, Abstract 05/28/2024 External Device Data STL ABSTRACTION Provider, Abstract 05/27/2024 Results Follow-Up [facility] [id number] [address] Sy Diaz MD MAMMO 3D TEZ SCREEN BILAT W OR WO CAD 05/26/2024 1:09 PM [employer] - 05/26/2024 11:59 PM [employer] Hospital Encounter [facility] [facility] [address] [place] [address] Sy Diaz MD Discharge Disposition: Home or Self Care 05/25/2024 External Device Data STL ABSTRACTION Provider, Abstract 05/11/2024 External Device Data STL ABSTRACTION Provider, Abstract 04/15/2024 External Device Data STL ABSTRACTION Provider, Abstract 04/14/2024 External Device Data STL ABSTRACTION Provider, Abstract 04/13/2024 External Device Data STL ABSTRACTION Provider, Abstract 04/12/2024 10:30 AM [employer] Office Visit [facility] [place] [id number] [place] [address] Sy Diaz MD Well woman exam with routine gynecological exam (Primary Dx); Visit for screening mammogram; Chronic obstructive pulmonary disease, unspecified COPD type (CMS/HCC); Menopause 04/06/2024 External Device Data STL ABSTRACTION Provider, Abstract from Last 3 Months Immunizations Immunization Administration Dates Next Due (HAVRIX/VAQTA)(19 YRS UP) HE PATITIS A VACCINE ADULT DOSAGE 1 ML IMM 04/08/2019,12/03/2017 (PNEUMOVAX 23)(50 YRS UP) PN EUMOCOCCAL POLYSACCHARIDE (PPV23) 0.5 ML, IM 02/24/2018 (PREVNAR 13)(6 WKS UP) PNEUM OCOCCAL CONJUGATE (PCV13) 0.5 ML, IM 03/12/2016 (SHINGRIX)(50 YRS UP) ZOSTER VACCINE RECOMBINANT, 0.5 ML, IM 04/14/2021,01/23/2021 INFLUENZA VACCINE HIGH DOSE QUADRIVALENT 65 YR UP PF IM 12/22/2019 INFLUENZA VACCINE QUADRIVALE NT 6 MOS UP PF IM 12/03/2017,11/21/2016,03/12/2016 INFLUENZA VACCINE QUADRIVALE NT ADJ 65 YR UP PF IM 01/16/2021 Family History Medical History Relation Name Comments Kidney Cancer Brother 1 Jon Prostate Cancer Brother 1 Jon Arrhythmia Brother 2 William High Cholesterol Brother 2 William Breast Cancer Daughter 1 Raiza Other Daughter 1 Raiza fibroid uterus, (outside of uterus) Healthy Daughter 2 Kelsey Diabetes Father age onset Prostate Cancer Father metastatic Learning Disabilities Grandson Stroke Maternal Aunt Stroke Maternal Grandfather Hypertension Mother Other Mother ulcerative coli tis, ileostomy, Stroke Mother Ulcerative Colitis Mother ileostomy Learning Disabilities Nephew x2 Breast Cancer Niece Invasive ducta l carcinoma Learning Disabilities Niece Hypertension Other H-Porter Other Paternal Aunt diverticulitis Heart Attack Paternal Grandfather Healthy Sister Teena Healthy Son Mark Psoriasis Son Mark Colon Cancer Neg Hx Relation Name Status Comments Brother 1 Jon Alive Brother 2 William Alive Daughter 1 Raiza Alive Daughter 2 Kelsey Alive Father (Age 66) Grandchild Alive Grandson Alive Maternal Aunt Maternal Cousin x9 Alive Maternal Grandfather (Age 60s) Maternal Grandmother (Age 80s) Maternal Uncle 1 Maternal Uncle 2 Mother (Age 79) Nephew x2 Alive Niece Alive Niece/Nephew x4 Alive Other H-Porter Alive Paternal Aunt (Age 70s) Paternal Cousin 1 (Age 70s) Paternal Cousin 2 x3 Alive Paternal Grandfather Paternal Grandmother (Age 80s) Paternal Uncle Alive Sister Teena Alive Son Mark Alive Social History Tobacco Use Types Packs/Day Years Used Date Smoking Tobacco: Never Smokeless Tobacco: Never Tobacco Cessation:Counseling Given: Not Answered Alcohol Use Standard Drinks/Week Comments Not Currently 0 (1 standard drink = 0.6 oz pur e alcohol) socially Comments No Sex and Gender Information Value Date Recorded Sex Assigned at Not on file Legal Sex Female 4:59 AM [employer] Gender Identity Not on file Sexual Orientation Not on file Last Filed Vital Signs Vital Sign Reading Time Taken Comments Blood Pressure 124/78 04/12/2024 10:36 AM [employer] Pulse 60 01/20/2020 12:19 PM CDT Temperature 36.1 C (96.9 F) 01/20/2020 12:08 PM CDT Respiratory Rate 18 01/20/2020 12:19 PM CDT Oxygen Saturation 100% 01/20/2020 12:19 PM CDT Inhaled Oxygen Concentration - - Weight 80.3 kg (177 lb) 04/12/2024 10:36 AM [employer] Height 165.1 cm (5' 5 ) 04/12/2024 10:36 AM [employer] Body Mass Index 29.45 04/12/2024 10:36 AM [employer] Plan of Treatment Upcoming Encounters Date Type Department Care Team (Late st Contact Info) Description 05/11/2025 10:30 AM HANDIC[employer] Office Visit [facility] [place] [id number] [place] [phone] Sy Diaz MD [id number] [place] [address] 06/08/2025 10:40 AM CDT Appointment [facility] [address] [place] [address] Sy Diaz MD [address] [address] 06/08/2025 11:[address] [facility] [place] [facility] [address] [place] [address] Sy Diaz MD [address] [address] Health Maintenance Due Date Last Done Comments DTAP/TDAP/TD VACCINES (1 - Tdap) 1969 FIT-DNA Q 3 years 12/27/1995 FIT/FOBT Q 1 year 12/27/1995 Flex Sig/CT Colonography Q 5 years 12/27/1995 INFLUENZA VACCINE (#1) 2023 , 12/22/2019, 12/03/2017, Additional history exists COVID-19 Vaccine (3 2023-2 5 season) 2023 12/12/2021, 06/20/2021 COLORECTAL SCREENING 01/19/2025 01/20/2020, 01/20/2020, 01/20/2020, Additional history exists Colorectal Cancer Screening 01/19/2025 BREAST CANCER SCREENING 06/16/2025 06/17/19 25, 05/26/2024, 04/24/2023, Additional history exists RSV VACCINE (60+ or ) (1 - 1-dose 75+ series) 2025 OSTEOPOROSIS SCREENING 04/24/2028 , 01/11/2021, 07/16/2017, Additional history exists PNEUMOCOCCAL VACCINE 50+ YEARS Completed 02/24/2018 , 03/12/2016 ZOSTER VACCINE Completed 04/14/2021, 01/23/2021 Medicare [place] ([place]) Preventative Visit/Annual Wellness Visit Completed 04/12/2024, 04/09/2023, 03/06/2022, Additional history exists Procedures Procedure Name Priority Date/Time Associated Diagnosis Comments MAMMO DIAG UNI LEFT 3D TEZ W OR WO CAD Routine 06/16/2024 8:06 AM CDT Abnormal mammogram of left breast MAMMO BREAST US LEFT LTD Routine 06/16/2024 8:06 AM CDT Abnormal mammogram of left breast MAMMO 3D TEZ SCREEN BILAT W OR WO CAD Routine 05/26/2024 1:39 PM [employer] Visit for screening mammogram XR DEXA BONE DENSITY AXIAL 1 OR MORE SITES Routine 04/24/2023 1:18 PM [employer] Screening for osteoporosis Menopause COLONOSCOPY REPORT 01/20/2020 12 :08 PM CDT from Last 3 Months or Most Recently Relevant to Health Maintenance Results * MAMMO 3D TEZ DIAGNOSTIC UNI LT W OR WO CAD (06/16/2024 8:06 AM CDT) Anatomical Region Laterality Modality Breast Left Mammography 06/16/2024 8:06 AM CDT Impressions 06/16/2024 8:25 AM CDT IMPRESSION: No suspicious findings to suggest malignancy. Left breast cyst noted. Annual mammography recommended. OVERALL FINAL ASSESSMENT: BI-RADS CATEGORY 2: Benign findings DICTATION LOCATION: [facility] Narrative 06/16/2024 8:25 AM CDT LEFT BREAST FULL-FIELD DIGITAL DIAGNOSTIC MAMMOGRAM WITH CAD WITH 3D TOMOSYNTHESIS AND LIMITED LEFT BREAST ULTRASOUND DATE: 06/16/2024 8:06 AM HISTORY: Abnormal screening mammogram COMPARISON: 05/26/2024 and older BREAST COMPOSITION: The breasts are heterogeneously dense, which may obscure small masses. TECHNIQUE: Diagnostic full field and spot compression digital mammography was performed on the left breast. Low-dose digital breast tomosynthesis examination was performed with 2D and 3D acquisitions. Examination is read in conjunction with computer aided detection. Targeted sonography of the left breast was performed. FINDINGS: MAMMOGRAMS: There is an obscured mass in the posterior outer central breast. ML projection this measures approximately 1.8 cm and is located 7.5 cm deep to the nipple. No concerning microcalcifications or architectural distortion is identified. ULTRASOUND: Targeted sonography the outer central left breast was performed. A 2-3:00, 5 cm from the nipple, posterior depth, there is a cyst which measures 1.5 x 0.4 x 1.4 cm. This demonstrates no internal vascularity. Posterior acoustic enhancement is seen. This is felt correlate the mammographic mass. No concerning mass is noted. us Sy Diaz MD MAMMO ORDERABLES Final Resul t * MAMMO BREAST US LEFT LTD (06/16/2024 8:06 AM CDT) Anatomical Region Laterality Modality Left Ultrasound 06/16/2024 8:06 AM CDT Impressions 06/16/2024 8:25 AM CDT IMPRESSION: No suspicious findings to suggest malignancy. Left breast cyst noted. Annual mammography recommended. OVERALL FINAL ASSESSMENT: BI-RADS CATEGORY 2: Benign findings DICTATION LOCATION: [facility] 06/16/2024 8:25 AM CDT LEFT BREAST FULL-FIELD DIGITAL DIAGNOSTIC MAMMOGRAM WITH CAD WITH 3D TOMOSYNTHESIS AND LIMITED LEFT BREAST ULTRASOUND DATE: 06/16/2024 8:06 AM HISTORY: Abnormal screening mammogram COMPARISON: 05/26/2024 and older BREAST COMPOSITION: The breasts are heterogeneously dense, which may obscure small masses. TECHNIQUE: Diagnostic full field and spot compression digital mammography was performed on the left breast. Low-dose digital breast tomosynthesis examination was performed with 2D and 3D acquisitions. Examination is read in conjunction with computer aided detection. Targeted sonography of the left breast was performed. FINDINGS: MAMMOGRAMS: There is an obscured mass in the posterior outer central breast. ML projection this measures approximately 1.8 cm and is located 7.5 cm deep to the nipple. No concerning microcalcifications or architectural distortion is identified. ULTRASOUND: Targeted sonography the outer central left breast was performed. A 2-3:00, 5 cm from the nipple, posterior depth, there is a cyst which measures 1.5 x 0.4 x 1.4 cm. This demonstrates no internal vascularity. Posterior acoustic enhancement is seen. This is felt correlate the mammographic mass. No concerning mass is noted. us Sy Diaz MD MAMMO ORDERABLES Final Resul t * MAMMO 3D TEZ SCREEN BILAT W OR WO CAD (05/26/2024 1:39 PM HANDICAP[employer]ARNESS [employer]ACING) Anatomical Region Laterality Modality Breast Bilateral Mammography 05/26/2024 1:39 PM [employer] Impressions 05/26/2024 1:50 PM [employer] IMPRESSION: Area of increased density in the upper outer left breast. Left diagnostic mammography and possible left breast ultrasound recommended. OVERALL FINAL ASSESSMENT: BI-RADS CATEGORY 0 - incomplete, needs additional imaging evaluation DICTATION LOCATION: [facility] 05/26/2024 1:50 PM HAND[employer]PER [employer]ARNESS [employer]ACING BILATERAL SCREENING DIGITAL MAMMOGRAM WITH 3D TOMOSYNTHESIS AND CAD DATE: 05/26/2024 1:39 PM HISTORY: Routine screening. TECHNIQUE: Full-field digital craniocaudal and mediolateral oblique projections of both breasts were obtained. Low-dose full-field digital breast tomosynthesis examination was performed with 2D and 3D acquisitions. Examination is read in conjunction with computer aided detection. COMPARISON: Prior available breast imaging exams. BREAST COMPOSITION: The breasts are heterogeneously dense, which may obscure small masses FINDINGS: There is an area of increased density in the upper outer left breast, posterior depth. Additional imaging of the left breast is recommended. No concerning finding within the right breast. us Sy Diaz MD MAMMO ORDERABLES Final Resul t * XR DEXA BONE DENSITY AXIAL 1 OR MORE SITES (04/24/2023 1:18 PM HANDICAP[employer]ARNESS [employer]AC[employer]) Anatomical Region Laterality Modality Digital Radiogra phy 04/24/2023 1:18 PM [employer] Impressions 04/24/2023 4:08 PM [employer] IMPRESSION: This is a summary page. Please refer to the complete detailed report found in the Imaging Section of the [facility] EMR, including absolute bone mineral density values. Decreased (osteopenic) BMD. Comments: Bone mineral density measured in the spine may be unreliable due to the impact of sclerotic degenerative changes. Statistical change: No significant decrease in BMD since the prior exam. A statistically significant change is defined as a change of greater than 2.5 standard deviations in the least significant difference (LSD) from the prior study. Least significant differences and statistically significant changes are defined as follows: Lumbar spine: +/- 0.010 g/cm2 LSD (+/- 0.025 g/cm2 statistically significant change) Femoral neck: +/- 0.014 g/cm2 (+/- 0.035 g/cm2) Forearm radius 33%: +/- 0.020 g/cm2 (+/- 0.050 g/cm2) FRAX FRACTURE RISK ASSESSMENT: Risk factors: Personal history of fracture. 10 Year Probability Of Fracture Major Osteoporotic: 16.3 % Hip: 2.7 % Comparison population: [place], Race: A major osteoporotic fracture is defined as a fracture of the spine, forearm, hip or shoulder. Definitions: Normal: T-score >= -1.0 Osteopenia T-score less than -1.0 and above -2.5 Osteoporosis: T-score <= -2.5 Follow-up Recommendations: Patients without high risk factors for osteoporosis T-score -1.0 to -1.5 - Consider repeat BMD in 5-10 years T-score -1.5 to - 2.0 - Consider repeat BMD in 3-5 years T-score -2.0 to - 2.5 - Consider repeat BMD every 2 years Patients on treatment for osteoporosis 1-2 years after initiation of treatment and every 2 years thereafter DICTATION LOCATION: Location 1 - [facility] Narrative 04/24/2023 4:08 PM [employer] EXAMINATION: BONE DENSITY STUDY (DXA) DATE: 04/24/2023 1:18 PM HISTORY: See Diagnosis Screening for osteoporosis; Menopause PROCEDURE: Planar images of the lumbar spine, hip(s) and/or forearm(s) using a [employer] DEXA scanner for bone mineral density determination (BMD). Prior bone density: 01/11/2021 FINDINGS: Lumbar Spine (L1-L4): T-Score: 0.3 Left 33% Radius: T-Score: -1.6 Left Femoral Neck: T-Score: -1.6 Right Femoral Neck: T-Score: -1.4 Procedure Note John Ahn MD - 04/24/2023 EXAMINATION: BONE DENSITY STUDY (DXA) DATE: 04/24/2023 1:18 PM HISTORY: See Diagnosis Screening for osteoporosis; Menopause PROCEDURE: Planar images of the lumbar spine, hip(s) and/or forearm(s) using a [employer] DEXA scanner for bone mineral density determination (BMD). Prior bone density: 01/11/2021 FINDINGS: Lumbar Spine (L1-L4): T-Score: 0.3 Left 33% Radius: T-Score: -1.6 Left Femoral Neck: T-Score: -1.6 Right Femoral Neck: T-Score: -1.4 IMPRESSION: This is a summary page. Please refer to the complete detailed report found in the Imaging Section of the [facility] EMR, including absolute bone mineral density values. Decreased (osteopenic) BMD. Comments: Bone mineral density measured in the spine may be unreliable due to the impact of sclerotic degenerative changes. Statistical change: No significant decrease in BMD since the prior exam. A statistically significant change is defined as a change of greater than 2.5 standard deviations in the least significant difference (LSD) from the prior study. Least significant differences and statistically significant changes are defined as follows: Lumbar spine: +/- 0.010 g/cm2 LSD (+/- 0.025 g/cm2 statistically significant change) Femoral neck: +/- 0.014 g/cm2 (+/- 0.035 g/cm2) Forearm radius 33%: +/- 0.020 g/cm2 (+/- 0.050 g/cm2) FRAX FRACTURE RISK ASSESSMENT: Risk factors: Personal history of fracture. 10 Year Probability Of Fracture Major Osteoporotic: 16.3 % Hip: 2.7 % Comparison population: [place], Race: A major osteoporotic fracture is defined as a fracture of the spine, forearm, hip or shoulder. Definitions: Normal: T-score >= -1.0 Osteopenia T-score less than -1.0 and above -2.5 Osteoporosis: T-score <= -2.5 Follow-up Recommendations: Patients without high risk factors for osteoporosis T-score -1.0 to -1.5 - Consider repeat BMD in 5-10 years T-score -1.5 to - 2.0 - Consider repeat BMD in 3-5 years T-score -2.0 to - 2.5 - Consider repeat BMD every 2 years Patients on treatment for osteoporosis 1-2 years after initiation of treatment and every 2 years thereafter DICTATION LOCATION: Location 1 - [facility] us Sy Diaz MD DIAGNOSTIC IMAGING ORDERABLE S Final Result * COLONOSCOPY REPORT (01/20/2020 12:08 PM CDT) Narrative Procedure Note Brandan Bazzi MD - 01/20/2020 12:06 PM CDT [facility] Endoscopy Patient Name: Henny Teague Procedure Date: 01/20/2020 Date of : 1950 Admit Type: Outpatient Age: 69 Attending MD: Brandan Bazzi MD Procedure: Colonoscopy Indications: High risk colon cancer surveillance: Personal history of colonic polyp. She had 10 mm right colon sessile serrated adenoma removed at colonoscopy in 08/2016. Mother had ulcerative colitis requiring colectomy but not for cancer. No other family history of colorectal neoplasia. Providers: Brandan Bazzi MD Referring MD: Porter Anand MD, Sy Diaz MD Medicines: TIVA Procedure: Informed consent was obtained for the procedure, including moderate sedation after risks were discussed. Based on the pre-procedure assessment, including review of the patient's medical history, medications, allergies, and review of systems, the patient was deemed to be an appropriate candidate for sedation. A timeout was performed. Continuous ECG monitoring, pulse oximetry, blood pressure monitoring, and direct observation were performed. The Colonoscope was introduced through the anus and advanced to the cecum, identified by appendiceal orifice and ileocecal valve. The colonoscopy was performed without difficulty. The patient tolerated the procedure well. The quality of the bowel preparation was excellent. Estimated Blood Loss: Estimated blood loss was minimal. Findings: Internal hemorrhoids were seen on retroflexion. There was mild sigmoid diverticulosis. Remainder appeared normal to the cecum. There was a benign appearing 3 mm diameter sessile cecal polyp completely removed via cold snare, likely small adenoma. Tissue retrieved. No evidence for colon cancer or inflammatory bowel disease. Cecum and ileocecal valve well visualized and otherwise appeared normal. Complications: No immediate complications. Impression: 1. Internal hemorrhoids 2. Mild sigmoid diverticulosis. 3. Benign appearing 3 mm diameter sessile cecal polyp completely removed via cold snare, likely small adenoma. Tissue retrieved. 4. Otherwise normal colonoscopy. No colon cancer or inflammatory bowel disease. Recommendation: Reassurance. High fiber diet. Await pathology. Repeat colonoscopy in 5 years due to prior large adenoma and finding of additional small polyp on current exam. Follow up with Dr. Anand for medical issues and Dr. Diaz for ACID REGENERATOR issues. Brandan Bazzi MD 01/20/2020 12:06:36 PM This report has been signed electronically. Number of Addenda: 0 Procedure Date: 01/20/2020 11:32:[address] [place] [address] Brandan Bazzi MD GI PROCEDURE ORDERABLES Final Re sult from Last 3 Months or Most Recently Relevant to Health Maintenance Insurance [facility] [place] [id number] [employer] PPO [facility] [employer] Advance Directives For more information, please contact: [phone] * Full Code (Latest Code Status on File) Date Activated Date Inactivated Comments 01/20/2020 11:09 AM 01/20/2020 2:49 PM * Full Code Date Activated Date Inactivated Comments 10/11/2016 9:32 AM 10/12/2016 12:44 PM * Full Code Date Activated Date Inactivated Comments 10/11/2016 6:20 AM 10/11/2016 9:32 AM * Full Code Date Activated Date Inactivated Comments 09/10/2016 7:45 AM 09/10/2016 11:35 AM * Full Code Date Activated Date Inactivated Comments 05/19/2015 6:20 AM 05/19/2015 11:25 AM Care Teams Detective Private Eye Relationship Specialty Start Date End Date Porter Anand MD PCP - General Family Practice 12/16/19
--- OUTSIDE RECORDS SUMMARY | 2024-06-21 10:15 | XMS_ITS | Encounter Summary ---
Author Organization [facility] Address [address] [place] [address] Care Team Providers Care Technology Services Manager Name Role Phone Porter Anand MD Primary Care Provider [phone]- [phone] Encounter Details Date Type Department Care Team (Late Contact Info) Description 06/16/2024 Results Follow-Up [facility] [email or web address] [address] Sy Diaz MD [address] [address] MAMMO 3D TEZ DIAGNOSTIC UNI LT W OR WO CAD Social History Tobacco Use Types Packs/Day Years Used Date Smoking Tobacco: Never Smokeless Tobacco: Never Alcohol Use Standard Drinks/Week Comments Not Currently 0 (1 standard drink = 0.6 oz pur e alcohol) socially Comments No Sex and Gender Information Value Date Recorded Sex Assigned at Not on file 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 Gender Identity Not on file Sexual Orientation Not on file documented as of this encounter Plan of Treatment Upcoming Encounters Date Type Department Care Team (Late Contact Info) Description 05/11/2025 10:30 AM DISH NETWORK INSTALLER Office Visit [facility] [email or web address] [address] Sy Diaz MD [address] [address] 06/08/2025 10:40 AM CDT Appointment [facility] [address] [place] [phone] Sy Diaz [facility] [address] [facility] [address] [place] [address] 06/08/2025 11:00 AM CDT Appointment [facility] [place] [address] [place] [address] Sy Diaz MD [address] [facility] [address] [place] [address] documented as of this encounter Visit Diagnoses Not on filedocumented in this encounter Care Teams Technology Services Manager Relationship Specialty Start Date End Date Porter Anand MD PCP - General Family Practice 12/16/19 documented as of this encounter
--- OUTSIDE RECORDS SUMMARY | 2024-06-21 10:15 | XMS_ITS | Encounter Summary ---
Author Organization [facility] Address 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 Gender Identity Not on file Sexual Orientation Not on file documented as of this encounter Plan of Treatment Upcoming Encounters Date Type Department Care Team (Late st Contact Info) Description 05/11/2025 10:30 AM TECHNICAL PROJECT MANAGER Office Visit [facility] [place] [address] [place] [phone] Sy Diaz MD [address] [place] [address] 06/08/2025 10:40 AM CDT Appointment [facility] [address] [place] [address] Sy Diaz MD [address] [place] [address] 06/08/2025 11:00 AM CDT Appointment [facility] [place] [address] [place] [address] Sy Diaz MD [address] [place] [address] documented as of this encounter Visit Diagnoses Diagnosis Backache, unspecified- Primary documented in this encounter Care Teams Desizing Machine Offbearer Relationship Specialty Start Date End Date Porter Anand MD PCP - General Family Practice 12/16/19 documented as of this encounter
[2024-06-21 14:59] LABS: Hepatitis B Surface Antigen Negative (Negative)
[2024-06-21 15:05] LABS: HAV RESULT Negative (Negative); Hepatitis B Core IgM Result Negative (Negative)
[2024-06-21 15:16] LABS: Hepatitis C Virus Antibody Negative (Negative)
== END 2024-06-21 09:27 | disposition home or self-care (01) ==
LOC: ANHGOSHLAB 09:28
PROVIDERS: PCP Family Medicine; Visit Provider Family Medicine
DX: R74.8 Abnormal levels of other serum enzymes (principal); R74.01 Elevation of levels of liver transaminase levels
CPT/HCPCS: 36415; 80074

== ENCOUNTER 2025-01-05 10:27 | Outpatient (CLI) | payer MEDICARE, SELFPAY ==
--- OUTSIDE RECORDS SUMMARY | 2025-01-05 12:16 | XMS_ITS | Clinical Summary ---
Author Organization [facility] Address [address] [place] [address] Care Team Providers Care Product Introduction Manager Name Role Phone Porter Anand MD Primary Care Provider [phone] Allergies Active Allergy Reactions Criticality Noted Date Comments Neomycin-Bacitracin- Polymyxin Unknown Nsaids (Non-Steroidal Anti-Inflammatory Drug) Other (See comments) Low 04/28/2020 Does not take due to GI issues Medications simvastatin (ZOCOR) 10 mg tablet Take 1 tablet (10 mg total) by mouth nightly 9 Active acyclovir (ZOVIRAX) 5 % ointment Apply 1 application (deactivated) topically 3 (three) times a day as needed (irritation) Space applications every 3 hours. Active escitalopram [...] (1,000 Units total) by mouth nightly Active hydroCHLOROthia zide (HYDRODIURIL) 12.5 mg tablet Take 1 tablet (12.5 mg total) by mouth daily 2 Active omeprazole (PriLOSEC) 20 mg capsule Take 1 capsule (20 mg total) by mouth daily 2 Active lisinopriL (PRINIVIL,ZESTR IL) 10 mg tablet Take 1 tablet (10 mg total) by mouth daily Active mirabegron ER (MYRBETRIQ) 25 mg tablet extended release 24 hr Take 1 tablet (25 mg total) by mouth daily Active psyllium 0.52 gram capsule Take 3 capsules (1.56 g total) by mouth 2 (two) times a day Active multivitamin tablet Take 1 tablet by mouth daily Active apixaban (ELIQUIS) 5 mg tablet Take 2 tablets (10 mg total) by mouth 2 (two) times a day for 7 days, THEN 1 tablet (5 mg total) 2 (two) times a day. 88 tablet 2 5 Active Active Problems Problem Noted Date Diagnosed Date Chest pain, unspecified type 08/09/2024 Posterior vitreous detachment of left eye 2024 Assessment & Plan (04/28/2024 10:39 AM FUR DRUMMER): No holes/breaks/tears 360 on dilated exam. Educated [...] 2021 Assessment & Plan (04/28/2024 10:39 AM FUR DRUMMER): Mild, not vis sig or affecting ADLs Surgery not indicated at this time Monitor Assessment & Plan (09/06/2021 4:00 PM CDT): Normal age related cataract; no significant effect on vision and would not expect this to cause patient's symptoms -cataract extraction (CE) not indicated; follow Vaginal vault prolapse after hysterectomy 2019 Overview (03/13/2020): Added automatically from request for surgery [id number] Urinary, incontinence, stress female 03/13/2020 Overview (03/13/2020): Added automatically from request for surgery [id number] Rectocele 01/12/2020 Lesion of canthus 04/29/2019 Assessment & Plan (04/29/2019 3:03 PM FUR DRUMMER): Nasal canthus left eye (OS) X 2 [...] 04/29/2019 Assessment & Plan (04/28/2024 10:39 AM FUR DRUMMER): Longstanding, status post (s/p) corneal ulcer. Not affecting BCVA. Monitor. Assessment & Plan (09/06/2021 3:59 PM CDT): Stable; no effect on vision Status post laparoscopic assisted vaginal hyster ectomy 10/11/2016 Overview (03/04/2022): Complex adnexal mass; cystocele Fibroma/fibroid uterus/pcos Rash 11/20/2015 Dense breasts 04/12/2015 FH: kidney cancer 04/05/2015 Cystocele, midline 04/05/2015 Overview (03/04/2022): urology [place] of toe 10/28/2014 Inflamed seborrheic keratosis 10/28/2014 Angioma 10/28/2014 Multiple benign melanocytic nevi 10/28/2014 Pain of thigh 07/27/2014 Dermatofibroma 01/08/2013 Benign neoplastic disease 01/08/2013 Epidermoid cyst 01/08/2013 Keratosis, senilis 01/08/2013 Ulcerative colitis, unspecified 10/12/2009 Unspecified menopausal and postmenopausal disord er 11/01/2008 Fibrocystic breast 11/01/2008 Overview (03/04/2022): Abnormal mammogram and normal bx 2007 Encounters Date Type Department Care Team Description 01/03/2025 Telephone [facility] Medicine Ophthalmology [address] [place] [id number] Santiago Ayala OD New symptoms 12/27/2024 2:30 PM CDT Office Visit [facility] [address] [place] [phone] Mira Villalta MD PhD Melanocytic nevi of trunk (Primary Dx); Lentigines; Seborrheic keratosis; Sebaceous hyperplasia; Acrochordon 10/20/2024 Results Follow-Up [facility] Medicine Physicians [facility] [address] [place] [phone] Carito Malcolm NP aPTT, Protime-INR, Comprehensive metabolic panel, Additional followed-up results: 3 10/19/2024 10:45 AM CDT Lab [facility] at [address] [address] Other acute pulmonary embolism without acute cor pulmonale (HCC); Pulmonary embolism, unspecified chronicity, unspecified pulmonary embolism type, unspecified whether acute cor pulmonale present (HCC); Anticoagulation management encounter 10/19/2024 9:00 AM CDT Office Visit [facility] Medicine Physicians [facility] [address] [place] [phone] Anyi Davis MD Pulmonary embolism, unspecified chronicity, unspecified pulmonary embolism type, unspecified whether acute cor pulmonale present (HCC) (Primary Dx); Other acute pulmonary embolism without acute cor pulmonale (HCC); Anticoagulation management encounter 10/19/2024 Orders Only [facility] [address] [phone] Shoshana Rangel Other acute pulmonary embolism without acute cor pulmonale (HCC) (Primary Dx); Pulmonary embolism, unspecified chronicity, unspecified pulmonary embolism type, unspecified whether acute cor pulmonale present (HCC); Anticoagulation management encounter 10/18/2024 2:00 PM CDT Procedure visit [facility] [address] [facility] [address] [place] [address] [place] [address] Ria Fernandez Au.D. Sensorineural hearing loss (SNHL) of both ears (Primary Dx); Evaluation of hearing impairment 10/12/[address] [phone] Rosalva Min from Last 3 Months Immunizations Immunization Administration Dates Next Due Hep A, Adult 04/08/2019,12/03/2017 Influenza, Quad, Adjuvantate d, Intramuscular 01/16/2021 Influenza, Quadrivalent, Hig h Dose, Preservative Free, Intrr 12/22/2019 Influenza, Quadrivalent, Spl it, Preservative Free, Intramuscular 12/03/2017,11/21/2016,03/12/2016 Pfizer SARS-CoV-2 Monovalent Vaccination (12+ Yrs) SIMENTAL-READY TO USE 06/20/2021 Pfizer Sars-Cov-2 Bivalent V accination (12+ YRS) 12/12/2021 [...] = 0.6 oz pur e alcohol) occassionally [facility] Utilities Answer Date Recorded In the past 12 months has e electric, gas, oil, or water [employer] threatened to shut off services in your home? No 08/10/2024 Social Connection and Isolation Panel Answer Date Recorded In a typical week, how many times do you talk on the phone with family, friends, or neighbors? More than three times a week 08/10/2024 How often do you get togethe r with friends or relatives? More than three times a week 08/10/2024 How often do you attend [facility] ch or quaker services? 1 to 4 times per year 08/10/2024 Do you belong to any clubs o r organizations such as yazidi groups, unions, fraternal or athletic groups, or school groups? No 08/10/2024 How often do you attend meet ings of the clubs or organizations you belong to? Never 08/10/2024 Are you , , di vorced, , never , or living with a partner? 08/10/2024 AUDIT-C Answer Date Recorded Q1: How often do you have a drink containing alc ohol? 2-3 times a week 08/09/2024 Q2: How many drinks containi ng alcohol do you have on a typical day when you are drinking? 1 or 2 08/09/2024 Q3: How often do you have si x or more drinks on one occasion? Never 08/09/2024 Overall Financial Resource Strain (CARDIA) Answe r Date Recorded How hard is it for you to pa y for the very basics like food, housing, medical care, and heating? Not very hard 08/10/2024 Hunger Vital Sign Answer Date Recorded Within the past 12 months, y ou worried that your food would run out before you got the money to buy more. Never true 08/11/19 Within the past 12 months, t he food you bought just didn't last and you didn't have money to get more. Never true 08/10/2024 PRAPARE - Transportation Answer Date Re corded In the past 12 months, has l ack of transportation kept you from medical appointments or from getting medications? No 07/23 In the past 12 months, has l ack of transportation kept you from meetings, work, or from getting things needed for daily living? No 08/10/2024 Housing Stability Vital Sign Answer Alex e Recorded In the last 12 months, was t here a time when you were not able to pay the mortgage or rent on time? No 08/10/2024 In the past 12 months, how m any times have you moved where you were living? 0 08/10/2024 At any time in the past 12 m [facility], were you homeless or living in a halfway (including now)? No 08/10/2024 Personal Safety Answer Date Recorded Have you ever been in or are you currently in a harmful physical or emotional relationship or is someone making you feel afraid or unsafe? Denies 09/29/2024 Comments No Sex and Gender Information Value Date Recorded Sex Assigned at Not on file Legal Sex Female 2:19 AM FUR DRUMMER Gender Identity Female 04/06/2023 3:49 PM FUR DRUMMER Sexual Orientation Straight 04/06/2023 3: 49 PM FUR DRUMMER Obstetrics History Last Filed Vital Signs Vital Sign Reading Time Taken Comments Blood Pressure 106/68 10/19/2024 9:04 AM CDT Pulse 62 10/19/2024 9:04 AM CDT Temperature 36.7 C (98 F) 10/19/2024 9:04 AM CDT Respiratory Rate 16 10/19/2024 9:04 AM CDT Oxygen Saturation 99% 10/19/2024 9:04 AM CDT Inhaled Oxygen Concentration - - Weight 80.9 kg (178 lb 5.6 oz) 10/19/2024 9:04 A M CDT no shoes Height 161 cm (5' 3.39) 10/19/2024 9:04 AM CDT Body Mass Index 31.21 10/19/2024 9:04 AM CDT Plan of Treatment Health Maintenance Due Date Last Done Comments Colon Cancer Screening-Colonoscopy 1950 Depression Screening 1950 Hepatitis C Screening 1950 Hepatitis B Screening 1968 Well Visit 65+ 12/27/2015 DTaP/Tdap/Td Vaccine (2 - Td or Tdap) 12/19/2019 12/18/2009 Covid-19 Vaccine (6 - 2024-2 6 season) 2024 12/12/2021, 06/20/2021, 12/17/2020, Additional history exists Influenza Vaccine (#1) 2024 , 12/22/2019, 12/03/2017, Additional history exists Osteoporosis Screening-Bone Density Scan 04/24/2025 04/24/2023, 04/24/2023, 01/11/2021, Additional history exists Breast Cancer Screening-Mammogram 05/26/2025 05/26/2024, 05/26/2024, 04/24/2023, Additional history exists Fall Risk Assessment 08/10/2025 08/10/2024 Pneumococcal vaccine 65+ Completed 02/24/2018, 02/22 Zoster Vaccine Completed 04/14/2021, 04/2020, 11/21/2011 Medical Devices Implanted Type Area Stone Layer Device Identifier Shelf Expiration Date Model / Serial / Lot [employer] No [id number] Upsylon 35.4cm Elongation Profile Lightweight Large Pore Low - [id number] Implanted:Qty: 1 on 05/02/2020 by Andreas Connor MD at [facility] Mesh N/A: Pelvis [employer] No 02/20/2023 [id number] / / [id number] [employer] No [id number] Obtryx Ii Precisionblue Advantage .15mm 22cm Sling Halo Needle - [id number] Implanted:Qty: 1 on 05/02/2020 by Andreas Connor MD at [facility] N/A: Pelvis [employer] No 10/06/2022 [id number] / / [id number] Procedures Procedure Name Priority Date/Time Associated Diagnosis Comments EGFR Routine 10/19/2024 10:48 AM CDT Other acute pulmonary embolism without acute cor pulmonale (HCC) Pulmonary embolism, unspecified chronicity, unspecified pulmonary embolism type, unspecified whether acute cor pulmonale present (HCC) Anticoagulation management encounter DIFFERENTIAL AUTO Routine 10/19/2024 10: 48 AM CDT Other acute pulmonary embolism without acute cor pulmonale (HCC) Pulmonary embolism, unspecified chronicity, unspecified pulmonary embolism type, unspecified whether acute cor pulmonale present (HCC) Anticoagulation management encounter CBC WITH AUTO DIFFERENTIAL Routine 10/19/2024 10:48 AM CDT Other acute pulmonary embolism without acute cor pulmonale (HCC) Pulmonary embolism, unspecified chronicity, unspecified pulmonary embolism type, unspecified whether acute cor pulmonale present (HCC) Anticoagulation management encounter COMPREHENSIVE METABOLIC PANEL Routine 10/19/2024 10:48 AM CDT Other acute pulmonary embolism without acute cor pulmonale (HCC) Pulmonary embolism, unspecified chronicity, unspecified pulmonary embolism type, unspecified whether acute cor pulmonale present (HCC) Anticoagulation management encounter PROTIME-INR Routine 10/19/2024 10:48 AM CDT Other acute pulmonary embolism without acute cor pulmonale (HCC) Pulmonary embolism, unspecified chronicity, unspecified pulmonary embolism type, unspecified whether acute cor pulmonale present (HCC) Anticoagulation management encounter APTT Routine 10/19/2024 10:48 AM CDT Other acute pulmonary embolism without acute cor pulmonale (HCC) Pulmonary embolism, unspecified chronicity, unspecified pulmonary embolism type, unspecified whether acute cor pulmonale present (HCC) Anticoagulation management encounter AUDBASE RESULTS 10/18/2024 2:04 PM CDT SCREENING MAMMOGRAM BILATERAL W SHAHAB Schedule Routine, Read Routine (OP Routine) 02/27/2022 1:55 PM FUR DRUMMER Screening mammogram, encounter for DEXA AXIAL SKELETON BONE DENSITY 1 OR MORE SITES Routine 02/08/2013 11:30 AM FUR DRUMMER from Last 3 Months or Most Recently Relevant to Health Maintenance Results * eGFR (10/19/2024 10:48 AM CDT) eGFR >90 >=60 mL/min/1. 73 m2 Comment: Interpretive Data Reference Interval Normal >/= 90 mL/min/1.73m2 Mildly decreased* 60 - 89 mL/min/1.73m2 Mildly to moderately decreased 45 - 59 mL/min/1.73m2 Moderately to severely decreased 30 - 44 mL/min/1.73m2 Severely decreased 15 - 29 mL/min/1.73m2 Kidney Failure < 15 mL/min/1.73m2 *Relative to young adult level Estimated glomerular filtration rate is determined by the 2020 CKD-EPI equation recommended by the National Kidney Foundation (A Unifying Approach to GFR Estimation: Recommendations of the NKF-ASK Task Force on Reassessing the Inclusion of Race in Diagnosing Kidney Disease, JASN 2020). The CKD-EPI equation should not be used for patients with unstable renal function and has not been validated in children and those over 70. Current interpretive data was last reviewed 2021. Testing performed by: [address] [address] Blood 10/19/2024 10:4 8 AM CDT 10/19/2024 11:00 AM CDT us Carito Malcolm NP LAB BLOOD ORDERABLES Fin al Result YUN CORDOBA [address] [facility] Department [place] [address] * Differential, auto (10/19/2024 10:48 AM CDT) Pathologist [facility] Neutrophil abs 2.68 1.50 - 6.50 K/cumm Comment:Testing performed by : [address] [address] Imm gran abs 0.02 0.00 - 0.10 K/cumm YUN CORDOBA Comment:Testing performed by : [address] [address] Lymphocyte abs 1.54 0.80 - 3.30 K/cumm [facility] Comment:Testing performed by : [address] [address] Monocyte abs 0.56 0.20 - 0.80 K/cumm [facility] Comment:Testing performed by : [address] [address] Eosinophil abs 0.09 0.00 - 0.50 K/cumm [facility] Comment:Testing performed by : [address], [place]., [address] Basophil abs 0.05 0.00 - 0.10 K/cumm [facility] Comment:Testing performed by : [address] [address] Neutrophil pct 54.3 % [facility] Comment: Interpretive Data Percent cell count reference ranges are not reported, since discordance with absolute values may lead to misinterpretation of CBC data. Current Interpretive Data was last revised on 2017. Testing performed by: [address] [address] Imm gran pct 0.4 % [facility] Comment: Interpretive Data Percent cell count reference ranges are not reported, since discordance with absolute values may lead to misinterpretation of CBC data. Current Interpretive Data was last revised on 2017. Testing performed by: [address] [address] Lymphocyte pct 31.2 % [facility] Comment: Interpretive Data Percent cell count reference ranges are not reported, since discordance with absolute values may lead to misinterpretation of CBC data. Current Interpretive Data was last revised on 2017. Testing performed by: [address] [address] Monocyte pct 11.3 % [facility] Comment: Interpretive Data Percent cell count reference ranges are not reported, since discordance with absolute values may lead to misinterpretation of CBC data. Current Interpretive Data was last revised on 2017. Testing performed by: [address] [address] Eosinophil pct 1.8 % [facility] Comment: Interpretive Data Percent cell count reference ranges are not reported, since discordance with absolute values may lead to misinterpretation of CBC data. Current Interpretive Data was last revised on 2017. Testing performed by: [address] [address] Basophil pct 1.0 % YUN CORDOBA Comment: Interpretive Data Percent cell count reference ranges are not reported, since discordance with absolute values may lead to misinterpretation of CBC data. Current Interpretive Data was last revised on 2017. Testing performed by: [address] [address] Blood 10/19/2024 10:4 8 AM CDT 10/19/2024 11:01 AM CDT us Carito Malcolm NP LAB BLOOD ORDERABLES Fin al Result YUN [address] [facility] Department [place] [address] * CBC with auto differential (10/19/2024 10:48 AM CDT) WBC 4.94 3.80 - 9.90 K/cumm Comment:Testing performed by : [address] [address] Hgb 13.2 11.9 - 15.5 g/dL YUN CORDOBA Comment:Testing performed by : [address] [address] Hct 38.8 35.6 - 45.5 % YUN CORDOBA Comment:Testing performed by : [address] [address] Plt 251 150 - 400 K/cumm YUN CORDOBA Comment:Testing performed by : [address] [address] MPV 9.3 9.1 - 12.3 fL YUN CORDOBA Comment:Testing performed by : [address] [address] RBC 4.14 3.90 - 5.20 M/cumm YUN CORDOBA Comment:Testing performed by : [address] [address] MCV 93.7 81.3 - 96.4 fL YUN Comment:Testing performed by : [address] [address] MCH 31.9 27.1 - 33.3 pg YUN CORDOBA Comment:Testing performed by : [address] [address] MCHC 34.0 32.3 - 35.7 g/dL YUN CORDOBA Comment:Testing performed by : [address] [address] RDW CV 13.3 11.1 - 14.9 % YUN Comment:Testing performed by : [address] [address] RDW SD 46.0 35.7 - 48.1 fL YUN CORDOBA Comment:Testing performed by : [address] [address] NRBC abs 0.00 0.00 - 0.01 K/cumm YUN Comment:Testing performed by : [address] [address] ANC Prelim 2.68 1.50 - 6.50 K/cumm YUN Comment: Interpretive Data The rapid ANC is a preliminary automated count and may vary from the final ANC (Neut Abs) reported in the WBC differential that follows. Current interpretive data was last revised 2024. Testing performed by: [address] [address] Blood 10/19/2024 10:4 8 AM CDT 10/19/2024 11:01 AM CDT us Cairto Malcolm NP LAB BLOOD ORDERABLES Fin al Result YUN CORDOBA [address] [facility] Department of Laboratories [place], [place] [id number] * aPTT (10/19/2024 10:48 AM CDT) [facility] Signature aPTT 30 22 - 37 sec Comment: Interpretive data aPTT test has not been evaluated for monitoring heparin therapy. The anti-Xa is the preferred test. Current interpretive data was last revised on 2019. Testing performed by: [address] [address] Blood 10/19/2024 10:4 8 AM CDT 10/19/2024 11:40 AM CDT Carito Malcolm CAN SOLDERER LAB BLOOD ORDERABLES Fin al Result Performing Organization Address City/[facility] Co de Phone Number [id number] [employer] [address] * (ABNORMAL) Protime-INR (10/19/2024 10:48 AM CDT) PT 14.8(H) 12.0 - 14.6 sec Comment: Ref Range High Testing performed by: [address] [address] INR 1.2 0.9 - 1.2 YUN Comment: Ref Range High Interpretive data Oral anticoagulant therapeutic ranges: Venous thromboembolism prophylaxis or treatment: 2.0-3.0 CARDIOLOGY Standard range: 2.0-3.0 High-intensity range: 2.5-3.5 Refer to indication-specific guidelines for appropriate target ranges for prosthetic heart valve replacement. Current interpretive data was last revised on 2019. Testing performed by: [address] [address] Blood 10/19/2024 10:4 8 AM CDT 10/19/2024 11:40 AM CDT Carito Malcolm CAN SOLDERER LAB BLOOD ORDERABLES Fin al Result Performing Organization Address [facility] Co de Phone Number [address] [place] [address] * Comprehensive metabolic panel (10/19/2024 10:48 AM CDT) Sodium 141 135 - 145 mmol/L Comment:Testing performed by : [address] [address] Potassium, pl 4.6 3.3 - 4.9 mmol/L [facility] Comment:Testing performed by : [address] [address] Chloride 104 97 - 110 mmol/L [facility] Comment:Testing performed by : [address], [place]., [address] CO2 29 22 - 32 mmol/L YUN Comment:Testing performed by : [address], [place]., [address] Anion gap 8 2 - 15 mmol/L [facility] Comment:Testing performed by : [address], [place]., [address] BUN 16 6 - 25 mg/dL [facility] Comment:Testing performed by : [address], [place]., [address] Creatinine 0.70 0.60 - 1.10 mg/dL [facility] Comment:Testing performed by : [address] [address] Glucose 96 70 - 199 mg/dL [facility] Comment: Interpretive Data Fasting glucose >/= 126 mg/dl is diagnostic for diabetes. Fasting is defined as no caloric intake for at least 8 hours. Fasting glucose between 100 mg/dl to 125 mg/dl is diagnostic of prediabetes. In a patient with classic symptoms of hyperglycemia or hyperglycemic crisis, a random glucose >/= 200 mg/dl is diagnostic for diabetes. In the absence of unequivocal hyperglycemia, results should be confirmed by repeat testing. The classification and Diagnosis of Diabetes Diabetes Care 202; 46: S19-S40. Current interpretive data was last revised 2022. Testing performed by: [address] [address] Calcium 9.7 8.5 - 10.3 mg/dL [facility] Comment:Testing performed by : [address] [address] Bilirubin, total 0.2 0.1 - 1.2 mg/dL [facility] Comment:Testing performed by : [address] [address] Protein, pl 6.6 6.5 - 8.5 g/dL YUN Comment:Testing performed by : [facility], [address] [place] [address]., [address] Albumin 4.2 3.5 - 5.0 g/dL YUN Comment:Testing performed by : [address] [address] Alk phos 68 40 - 130 Units/L YUN Comment:Testing performed by : [address] [address] ALT 14 7 - 45 Units/L YUN Comment:Testing performed by : [address] [address] AST 20 10 - 45 Units/L YUN Comment:Testing performed by : [address] [address] Blood 10/19/2024 10:4 8 AM CDT 10/19/2024 11:00 AM CDT Carito Malcolm NP LAB BLOOD ORDERABLES Fin al Result YUN [address] [facility] Department [place] [address] * AudBase Results (10/18/2024 2:04 PM CDT) Provider Scanning AUDIOLOGY SERVICES ORDERABLES Final Result * Screening Mammogram Bilateral W Shahab (02/27/2022 1:55 PM FUR DRUMMER) Anatomical Region Laterality Modality Breast Bilateral Mammography Narrative 02/27/2022 2:27 PM FUR DRUMMER Screening Mammogram Bilateral W Shahab: 02/27/22 Clinical: [...] Bone Density Multi Site (02/08/2013 11:30 AM FUR DRUMMER) Anatomical Region Laterality Modality Body N/A Radiographic Aline ging 02/08/2013 11:3 0 AM FUR DRUMMER Narrative 02/08/2013 12:26 PM FUR DRUMMER Bone mineral density [facility] Clinical History: Postmenopausal female currently taking calcium and vitamin D. DXA BMD was done at [facility] on a [employer] CI. Precision testing at this site has [...] 02/08/2013 12:26 AM Procedure Note Provider, MD Charleen Brown 07/17/2016 Bone mineral density [facility] Clinical History: Postmenopausal female currently taking calcium and vitamin D. DXA BMD was done at [facility] on a [employer] CI. Precision testing at this site [...] Most Recently Relevant to Health Maintenance Insurance [employer]ET[employer] MEDICARE [facility] Address: [address] [place] [address] UHC MEDICARE ADVANTAGE [facility] Address: [address] [place] [address] Advance Directives For more information, please contact: [phone] * LIMITED - No CPR (Latest Code Status on File) Date Activated Date Inactivated Comments 08/09/2024 7:13 PM 08/10/2024 9:50 PM Question Answer Comments Provide aggressive medical m anagement before a full cardiopulmonary arrest occurs. Use antibiotics, IV Fluids, and medical treatment unless specifically selected below: No intubationNo non-invasive ventilationNo cardioversionNo internal / external pacemaker Care Teams Product Introduction Manager Relationship Specialty Start Date End Date Porter Aannd MD PCP - General 12/06/19
--- OUTSIDE RECORDS SUMMARY | 2025-01-05 12:16 | XMS_ITS | Encounter Summary ---
Author Organization [facility] Address [address] [place] [address] Care Team Providers Care Stopper Maker Name Role Phone Porter Anand MD Primary Care Provider +1- [phone] Encounter Details Date Type Department Care Team (Latest Contact Info) Description 11/02/2008 Outpatient Historical [facility] [address] Sy Diaz MD [address] [address] Routine Gynecological Examination Social History Tobacco Use Types Packs/Day Years Used Date Smoking Tobacco: Never Alcohol Use Standard Drinks/Week Comments Yes 1.7 (1 standard drink = 0.6 oz p ure alcohol) Comments No Sex and Gender Information Value Date Recorded Sex Assigned at Not on file Legal Sex Female 4:59 AM PLASTICS FITTER Gender Identity Not on file Sexual Orientation Not on file documented as of this encounter Plan of Treatment Upcoming Encounters Date Type Department Care Team (Late st Contact Info) Description 05/11/2025 10:30 AM PLASTICS FITTER Office Visit [facility] [place] [address] [address] Sy Diaz MD [address] [address] 06/08/2025 10:40 AM CDT Appointment [facility] [address] [place] [address] Sy Diaz MD [address] [place] [phone] 06/08/2025 11:00 AM CDT Appointment [facility] [place] [address] [facility] [address] [place] [address] Sy Diaz MD [address] [facility] [address] [place] [address] documented as of this encounter Visit Diagnoses Diagnosis Routine gynecological examination documented in this encounter Care Teams Stopper Maker Relationship Specialty Start Date End Date Porter Anand MD PCP - General Family Practice 12/16/19 documented as of this encounter
--- OUTSIDE RECORDS SUMMARY | 2025-01-05 12:16 | XMS_ITS | Clinical Summary ---
Author Organization [facility] Address [address] [place] [address] Phone Care Team Providers Care Lockstitch Binder Name Role Phone Porter Anand MD Primary Care Provider +1- [phone] Allergies Active Allergy Reactions Criticality Noted Date [...] mg by mouth daily. 0 Active mv,with Db-qcah-RT-lut- 179herb 13.5-200-250 mg-mcg-mcg Tablet Take 1 Tablet [...] (12/25/2020): Added automatically from request for surgery [id number] Rectocele 01/12/2020 Corneal scar, left eye 04/29/2019 [...] 2015 Cystocele, midline 04/05/2015 Overview (06/02/2015): urology [place] of toe 10/28/2014 Hemangioma 10/28/2014 Inflamed seborrheic keratosis 10/28/2014 Multiple benign melanocytic nevi 10/28/2014 Pain of thigh 07/27/2014 Benign neoplastic disease 01/08/2013 Dermatofibroma 01/08/2013 Epidermoid cyst 01/08/2013 LMP 2006 11/01/2008 Fibrocystic Breast / Dense Breasts 11/01/2008 Overview (11/01/2008): Abnormal mammogram and normal bx 2007 Resolved Problems Problem Noted Date Diagnosed Date Resolved Date Endometrial polyp 06/02/2015 10/24/2016 Ovarian cyst, right 05/19/2015 10/25/19 17 left solid ovarian growth 05/19/2015 Postmenopausal bleeding 05/19/2015 08/05/2016 Intramural leiomyoma of uterus 05/19/2015 10/24/2016 FH: Ulcerative Colitis- mother 10/12/2009 04/13/2023 Encounters Date Type Department Care Team Description 12/14/2024 External Device Data STL ABSTRACTION Provider, Abstract 12/07/2024 External Device Data STL ABSTRACTION Provider, Abstract 10/06/2024 External Device Data STL ABSTRACTION Provider, Abstract 10/05/2024 External Device Data STL ABSTRACTION Provider, Abstract [...] l carcinoma Learning Disabilities Niece Hypertension Other Jaclyn-Porter Other Paternal Aunt diverticulitis Heart Attack Paternal [...] Alive Niece Alive Niece/Nephew x4 Alive Other Jaclyn-Porter Alive Paternal Aunt (Age 70s) Paternal Cousin [...] on file Legal Sex Female 4:59 AM HAND FUR CLEANER Gender Identity Not on file Sexual Orientation Not on file Last Filed Vital Signs Vital Sign Reading Time Taken Comments Blood Pressure 124/78 04/12/2024 10:36 AM HAND FUR CLEANER Pulse 60 01/20/2020 12:19 PM CDT Temperature 36.1 C (96.9 F) 01/20/2020 12:08 PM CDT Respiratory Rate 18 01/20/2020 12:19 PM CDT Oxygen Saturation 100% 01/20/2020 12:19 PM CDT Inhaled Oxygen Concentration - - Weight 80.3 kg (177 lb) 04/12/2024 10:36 AM HAND FUR CLEANER Height 165.1 cm (5' 5) 04/12/2024 10:36 AM HAND FUR CLEANER Body Mass Index 29.45 04/12/2024 10:36 AM HAND FUR CLEANER Plan of Treatment Upcoming Encounters Date Type Department Care Team (Late st Contact Info) Description 05/11/2025 10:30 AM HAND FUR CLEANER Office Visit [facility] [place] [address] [place] [address] Sy Diaz MD [address] [facility] [address] [place] [address] 06/08/2025 10:40 AM CDT Appointment [facility] [address] [place] [address] Sy Diaz MD [address] [place] [address] 06/08/2025 11:00 AM CDT Appointment [facility] [place] [facility] [address] [facility] [address] [place] [address] Sy Diaz MD [address] [facility] [address] [place] [address] Health Maintenance Due Date Last Done Comments DTAP/TDAP/TD VACCINES (1 - Tdap) 1969 FIT-DNA Q 3 years 12/27/1995 FIT/FOBT Q 1 year 12/27/1995 Flex Sig/CT Colonography Q 5 years 12/27/1995 INFLUENZA VACCINE (#1) 2024 , 12/22/2019, 12/03/2017, Additional history exists COVID-19 Vaccine (3 - 2024-2 6 season) 2024 12/12/2021, 06/20/2021 COLORECTAL SCREENING 01/19/2025 01/20/2020, 01/20/2020, [...] AM CDT Abnormal mammogram of left breast XR DEXA BONE DENSITY AXIAL 1 OR MORE SITES Routine 04/24/2023 1:18 PM HAND FUR CLEANER Screening for osteoporosis Menopause COLONOSCOPY REPORT 01/20/2020 [...] BI-RADS CATEGORY 2: Benign findings DICTATION LOCATION: [facility] Narrative 06/16/2024 8:25 AM CDT LEFT [...] 1 OR MORE SITES (04/24/2023 1:18 PM HAND FUR CLEANER) Anatomical Region Laterality Modality Digital Radiogra phy 04/24/2023 1:18 PM HAND FUR CLEANER Impressions 04/24/2023 4:08 PM HAND FUR CLEANER IMPRESSION: This is a summary page. Please refer to the complete detailed report found in the Imaging Section of the [facility] EMR, including absolute bone mineral density values. [...] years thereafter DICTATION LOCATION: Location 1 - [facility] 04/24/2023 4:08 PM HAND FUR CLEANER EXAMINATION: BONE DENSITY STUDY (DXA) DATE: 04/24/2023 1:18 PM HISTORY: See Diagnosis Screening for osteoporosis; Menopause PROCEDURE: Planar images of the lumbar spine, hip(s) and/or forearm(s) using a LUNAR DEXA scanner for bone mineral density determination [...] lumbar spine, hip(s) and/or forearm(s) using a LUNAR DEXA scanner for bone mineral density determination (BMD). Prior bone density: 01/11/2021 FINDINGS: Lumbar Spine (L1-L4): T-Score: 0.3 Left 33% Radius: T-Score: -1.6 Left Femoral Neck: T-Score: -1.6 Right Femoral Neck: T-Score: -1.4 IMPRESSION: This is a summary page. Please refer to the complete detailed report found in the Imaging Section of the [facility] EMR, including absolute bone mineral density values. [...] years thereafter DICTATION LOCATION: Location 1 - [facility] Sy Diaz MD DIAGNOSTIC IMAGING ORDERABLE S Final Result * COLONOSCOPY REPORT (01/20/2020 12:08 PM CDT) Narrative Procedure Note Brandan Bazzi MD - 01/20/2020 12:06 PM CDT [facility] Endoscopy Patient Name: Henny Teague Procedure Date: [...] on current exam. Follow up with Dr. nAand for medical issues and Dr. Diaz for MENAGERIE SUPERINTENDENT issues. Brandan Bazzi MD 01/20/2020 12:06:36 PM This report has been signed electronically. Number of Addenda: 0 Procedure Date: 01/20/2020 11:32:55 AM [address] [address] Brandan Bazzi MD GI PROCEDURE ORDERABLES Final Re sult from Last 3 Months or Most Recently Relevant to Health Maintenance Insurance A[employer] PPO MCR [facility] Advance Directives For more information, please contact: [phone] * Full Code (Latest Code Status on [...] 6:20 AM 05/19/2015 11:25 AM Care Teams Lockstitch Binder Relationship Specialty Start Date End Date Porter Anand MD PCP - General Family Practice 12/16/19
--- OUTSIDE RECORDS SUMMARY | 2025-01-05 12:16 | XMS_ITS | Encounter Summary ---
Author Organization [facility] Address [address] [place] [address] Care Team Providers Care Energy Conservation Specialist Name Role Phone Porter Anand MD Primary Care Provider +1- [phone] Encounter Details Date Type Department Care Team (Late st Contact Info) Description 10/20/2003 Outpatient Historical [facility] Luciano Mcgrath BACKACHE NOS (Primary Dx) Social History Tobacco Use Types Packs/Day Years Used Date Smoking Tobacco: Never Assessed Comments Unknown Sex and Gender Information Value Date Recorded Sex Assigned at Not on file Legal Sex Female 4:59 AM PULP MILL SUPERVISOR Gender Identity Not on file Sexual Orientation Not on file documented as of this encounter Plan of Treatment Upcoming Encounters Date Type Department Care Team (Late st Contact Info) Description 05/11/2025 10:30 AM PULP MILL SUPERVISOR Office Visit [facility] [place] [address] [place] [address] Sy Diaz MD [address] [facility] [address] [place] [address] 06/08/2025 10:40 AM CDT Appointment [facility] [address] [place] [address] Sy Diaz MD [address] [place] [address] 06/08/2025 11:00 AM CDT Appointment [facility] [place] A [address] [place] [address] Sy Diaz MD [address] [place] [address] documented as of this encounter Visit Diagnoses Diagnosis Backache, unspecified- Primary documented in this encounter Care Teams Energy Conservation Specialist Relationship Specialty Start Date End Date Porter Anand MD PCP - General Family Practice 12/16/19 documented as of this encounter
--- OUTSIDE RECORDS SUMMARY | 2025-01-05 12:16 | XMS_ITS | Clinical Summary ---
Author Organization [facility] Address [address] [place] [address] Care Team Providers Care Community Liaison Name Role Phone Unavailable Primary Care Provider Unavailabl e Social History Tobacco Use Types Packs/Day Years Used Date Smoking Tobacco: Never Assessed Comments Unknown Sex and Gender Information Value Date Recorded Sex Assigned at Not on file Legal Sex Female 8:06 AM CANARY BREEDER Gender Identity Not on file Sexual Orientation Not on file Plan of Treatment Health Maintenance Due Date Last Done Comments Hepatitis C Virus (HCV) Screening 1950 TdaP Immunization 1950 Cologuard 12/27/1995 Colonoscopy 12/27/1995 Colorectal Cancer Screening 12/27/1995 Immunochemical Fecal Occult Blood 12/27/1995 Pneumococcal Immunization (5 0+ years) (2 of 2 - PCV) 02/24/2019 02/24/2018 Influenza Immunization (#1) 11/22/202412/23, 12/22/2019, 12/03/2017 SARS-COV-2 Immunization ( - season) 2024 12/17/2020, 05/19/2020, 04/21/2020 Respiratory Syncytial Virus (RSV) Immunization (Adult) (1 - 1-dose 75+ series) 2025 Pneumococcal Immunization Combined Discontinued 02/24/2018 Zoster Immunization Completed 04/14/2021, 01/23/2021 Hepatitis B Immunization Aged Out No longer eligible based on patient's age to complete this topic Human Papillomavirus (HPV) Immunization Aged Out No longer eligible based on patient's age to complete this topic Meningococcal Immunization (ACWY) Aged Out No longer eligible based on patient's age to complete this topic Rotavirus Immunization Aged Out No lo nger eligible based on patient's age to complete this topic Insurance [employer] on file
== END 2025-01-05 10:28 | disposition home or self-care (01) ==
PROVIDERS: PCP Family Medicine; Visit Provider Family Medicine
DX: D68.69 Other thrombophilia (principal)
CPT/HCPCS: 81240; 85300; 85303; 85306